=== PATIENT | female | born 1960 | race African-American/Black ===

== ENCOUNTER 2017-04-23 12:50 | Inpatient (IN) | payer OTHER ==
[2017-04-23] MEDS ORDERED: ACETAMINOPHEN 500 MG TABLET (FP) PO ONE (12:58)
--- NOTE | 2017-04-23 13:14 | PDOC ---
History of Present Illness - General History Source: Patient Exam Limitations: No Limitations - History of Present Illness Initial Comments: 04/23/17 13:28 The patient is a 56 year old female with a significant PMH of HTN, diabetes, and hyperlipidemia who presents to the emergency department with fever and fatigue beginning approximately this morning. The patient reports associated tingling, hot head, and diarrhea with her fever. The patient also reports slow urinary release from about 2:30AM this morning. The patient notes having a sore throat and productive cough last week with clear and yellow sputum. The patient denies chest pain, shortness of breath, headache and dizziness. Denies chills, nausea, vomit, and constipation. Denies dysuria, frequency, urgency and hematuria. Allergies: NKA Social history: Former smoker. No reported drug or alcohol use. PCP: Dr. Xiong <Best Guardado - Last Filed: 04/23/17 15:46> <Nadeem Palacios - Last Filed: 04/23/17 16:21> - General Chief Complaint: SIRS, Suspected/Possible Stated Complaint: HYPERTENSION Time Seen by Provider: 04/23/17 13:06 Past History <Best Guardado - Last Filed: 04/23/17 15:46> - Past Medical History Diabetes: Yes HTN: Yes Hypercholesterolemia: Yes - Psycho/Social/Smoking Cessation Hx Anxiety: No Suicidal Ideation: No Smoking History: Never smoked Have you smoked in the past 12 months: No Information on smoking cessation initiated: No Hx Alcohol Use: No Drug/Substance Use Hx: No Substance Use Type: None <Nadeem Palacios - Last Filed: 04/23/17 16:21> - Past Medical History Allergies/Adverse Reactions: Allergies Allergy/AdvReac Type Severity Reaction Status Date / Time No Known Allergies Allergy Verified 04/23/17 13:01 Home Medications: Ambulatory Orders Amlodipine Besylate [Norvasc -] 5 mg PO DAILY 04/23/17 Aspirin [ASA -] 81 mg PO DAILY 04/23/17 Insulin Glargine,Hum.rec.anlog [Lantus Solostar PEN (NF)] 50 units SQ BID Insulin Lispro [Humalog Kwikpen] 10 unit SQ TID 04/23/17 Losartan Potassium 100 mg PO DAILY 04/23/17 Metoprolol Succinate [Toprol Xl] 50 mg PO DAILY 04/23/17 Simvastatin 10 mg PO HS 04/23/17 Sitagliptin Phos/Metformin HCl [Janumet 50-1,000 mg Tablet] 1 each PO BID Review of Systems - Review of Systems Comments:: 04/23/17 13:28 GENERAL/CONSTITUTIONAL: (+) Fever. No chills. No weakness. HEAD, EYES, EARS, NOSE AND THROAT: (+) Sore throat (last week). No change in vision. No ear pain or discharge. CARDIOVASCULAR: No chest pain or shortness of breath. RESPIRATORY: No cough, wheezing, or hemoptysis. GASTROINTESTINAL: (+) Diarrhea. No nausea, vomiting, or constipation. GENITOURINARY: (+) Slow urinary release. No dysuria, frequency. MUSCULOSKELETAL: No joint or muscle swelling or pain. No neck or back pain. SKIN: No rash NEUROLOGIC: No headache, vertigo, loss of consciousness, or change in strength/ sensation. ENDOCRINE: No increased thirst. No abnormal weight change. HEMATOLOGIC/LYMPHATIC: No anemia, easy bleeding, or history of blood clots. ALLERGIC/IMMUNOLOGIC: No hives or skin allergy. <Best Guardado - Last Filed: 04/23/17 15:46> *Physical Exam - Vital Signs Last Vital Signs Temp Pulse Resp BP Pulse Ox 101.2 F H 124 H 20 179/99 97 04/23/17 13:01 04/23/17 13:01 04/23/17 13:01 04/23/17 13:01 04/23/17 13:01 - Physical Exam Comments: 04/23/17 13:29 GENERAL: Awake, alert, and fully oriented, in no acute distress HEAD: No signs of trauma EYES: PERRLA, EOMI, sclera anicteric, conjunctiva clear ENT: (+) Nasal congestion. Auricles normal inspection, hearing grossly normal, nares patent, oropharynx clear without exudates. Moist mucosa NECK: Normal ROM, supple, no lymphadenopathy, JVD, or masses LUNGS: Breath sounds equal, clear to auscultation bilaterally. No wheezes, and no crackles HEART: Regular rate and rhythm, normal S1 and S2, no murmurs, rubs or gallops ABDOMEN: Soft, nontender, normoactive bowel sounds. No guarding, no rebound. No masses EXTREMITIES: Normal range of motion, no edema. No clubbing or cyanosis. No cords, erythema, or tenderness NEUROLOGICAL: Cranial nerves II through XII grossly intact. Normal speech, normal gait SKIN: Warm, Dry, normal turgor, no rashes or lesions noted. <Best Guardado - Last Filed: 04/23/17 15:46> - Vital Signs Last Vital Signs Temp Pulse Resp BP Pulse Ox 101.2 F H 124 H 20 179/99 97 04/23/17 13:01 04/23/17 13:01 04/23/17 13:01 04/23/17 13:01 04/23/17 13:01 <Nadeem Palacios - Last Filed: 04/23/17 16:21> Heart Score/ECG Review #1 04/23/17 15:47 Vent. rate 118 bpm. NH Interval: 176 ms QRS Duration: 74 ms QT/QTc: 312/437 ms P-R-T axes: 54 9 65 Sinus tachycardia Possible left atrial enlargment. Borderline ECG <Best Guardado - Last Filed: 04/23/17 15:46> ED Treatment Course - LABORATORY CBC & Chemistry Diagram: 04/23/17 13:35 04/23/17 13:35 <Best Guardado - Last Filed: 04/23/17 15:46> - LABORATORY CBC & Chemistry Diagram: 04/23/17 13:35 04/23/17 13:35 <Nadeem Palacios - Last Filed: 04/23/17 16:21> *DC/Admit/Observation/Transfer - Attestations Scribe Attestion: 04/23/17 13:29 Documentation prepared by Best Guardado, acting as medical supervisor for Nadeem Palacios MD. <Best Guardado - Last Filed: 04/23/17 15:46> - Discharge Dispostion Admit: Yes - Attestations Physician Attestion: 04/23/17 13:07 I, Dr. Nadeem Palacios, attest that this document has been prepared under my direction and personally reviewed by me in its entirety. I further attest, that it accurately reflects all work, treatment, procedures and medical decision -making performed by me. <Nadeem Palacios - Last Filed: 04/23/17 16:21> Diagnosis at time of Disposition: Fever of unknown origin (FUO) Sepsis Qualifiers: Sepsis type: sepsis due to unspecified organism Qualified Code(s): A41.9 - Sepsis, unspecified organism - Discharge Dispostion Condition at time of disposition: Improved - Referrals Referrals: Chuck Xiong MD [Primary Care Provider] -
[2017-04-23] MEDS ORDERED: SODIUM CHLORIDE 0.9% 1000 ML INFUS.BAG IV STA (13:15)
[2017-04-23 14:02] LABS: VENOUS PH 7.41 (7.32-7.42)
[2017-04-23 14:03] LABS: VENOUS BLOOD GAS HCO3 26.2 meq/L (19-25)
[2017-04-23 14:03] LABS: ALBUMIN 3.6 g/dl (3.4-5.0); ANION GAP 11 (8-16); BILIRUBIN,TOTAL 0.8 mg/dL (0.2-1.0); CALCIUM 8.5 mg/dL (8.5-10.1); CO2 28 mmol/L (21-32); CREATININE 0.7 mg/dL (0.55-1.02); GLUCOSE,RANDOM 191 mg/dL (74-106); SGOT/AST 14 U/L (15-37); SGPT/ALT 37 U/L (12-78); TOT PROT 7.3 g/dl (6.4-8.2)
[2017-04-23 14:05] LABS: ALK PHOS 81 U/L (45-117); CPK 180 IU/L (26-192); TROPONIN I < 0.02 ng/ml (0.00-0.05)
[2017-04-23 14:08] LABS: INR 1.14 (0.82-1.09); PROTHROMBIN TIME (PATIENT) 12.6 SEC (9.98-11.88)
[2017-04-23 14:10] LABS: ACTIVATED PTT 32.6 SECONDS (26.9-34.4)
[2017-04-23 14:28] LABS: URINE APPEARANCE CLOUDY; URINE BILIRUBIN NEGATIVE (NEGATIVE); URINE BLOOD NEGATIVE (NEGATIVE); URINE COLOR YELLOW; URINE GLUCOSE (UA) 1+ (NEGATIVE); URINE KETONE NEGATIVE (NEGATIVE); URINE LEUK ESTERASE NEGATIVE (NEGATIVE); URINE NITRITE NEGATIVE (NEGATIVE); URINE PROTEIN 2+ (NEGATIVE); URINE UROBILINOGEN NEGATIVE mg/dL (0.2-1.0)
[2017-04-23 14:29] LABS: BASOPHIL 0.3 % (0-2.0); MCH 25.6 pg (25.7-33.7); MEAN CELL VOLUME 82.5 fl (80-96); MEAN PLT VOLUME 9.9 fl (7.5-11.1); NEUTROPHILS 83.4 % (42.8-82.8); PLATELET COUNT 393 K/MM3 (134-434); RDW 15.2 % (11.6-15.6)
[2017-04-23 14:31] LABS: URINE HYALINE CAST 1 /lpf; URINE MUCUS RARE; URINE RBC 1 /hpf (0-3); URINE WBC 1 /hpf (3-5)
[2017-04-23] MEDS ORDERED: PIPERACILLIN/TAZOB 3.375 GM/50 ML PRE-DOCKED IV ONE (15:57)
[2017-04-23] MEDS ORDERED: PIPERACILLIN/TAZOB 3.375 GM 50 ML IVPB ONE (15:59)
[2017-04-23] MEDS: SODIUM CHLORIDE 1,000 ML IV SCH (17:20)
[2017-04-23] MEDS: INSULIN (NOVOLOG) ASPART 100 UNITS/ML 10ML VIAL SQ SCH (18:41)
[2017-04-23] MEDS ORDERED: SODIUM CHLORIDE 1,000 ML IV STA (18:43)
--- NOTE | 2017-04-23 18:49 | EKG ---
Test Reason : Blood Pressure : / mmHG Vent. Rate : 118 BPM Atrial Rate : 118 BPM P-R Int : 176 ms QRS Dur : 074 ms QT Int : 312 ms P-R-T Axes : 054 009 065 degrees QTc Int : 437 ms SINUS TACHYCARDIA POSSIBLE LEFT ATRIAL ENLARGEMENT BORDERLINE ECG NO PREVIOUS ECGS AVAILABLE Confirmed by FAVIOLA MILLIGAN MD ([id number]) on 04/23/2017 6:49:17 PM Referred By: Confirmed By:FAVIOLA MILLIGAN MD
[2017-04-23] MEDS ORDERED: ACETAMINOPHEN 325 MG TABLET (FP) ONE (21:45)
[2017-04-23] MEDS: ACETAMINOPHEN 325 MG TABLET (FP) PO PRN (21:51)
[2017-04-23] MEDS ORDERED: PATIENT'S OWN MEDICATION (NON-FORMULARY) (Sitagliptin Phos/Metformin Hcl [Janumet 50-1,000 PO SCH (22:00)
[2017-04-23] MEDS ORDERED: PIPERACILLIN/TAZOBACTAM 3.375 GM VIAL IVPB ONE (22:46)
[2017-04-23] MEDS ORDERED: DEXTROSE 5%-WATER - 50 ML IVPB ONE (22:47)
[2017-04-23] MEDS: INSULIN DETEMIR 100 UNITS/ML MDV SQ SCH (23:23)
[2017-04-23] MEDS: PIPERACILLIN/TAZOB 3.375 GM 3.375 GM in DEXTROSE 5%-WATER - 50 ML IVPB SCH (23:23)
[2017-04-23] MEDS: HEPARIN NA (PORCINE) 5,000 UNITS/ML 1ML VIAL SQ SCH (23:23)
[2017-04-23] MEDS: ATORVASTATIN CA 10 MG TABLET (FP) PO SCH (23:23)
[2017-04-24] MEDS ORDERED: DEXTROSE 5%-WATER - 50 ML IVPB ONE ×2 (01:32→10:03)
[2017-04-24] MEDS ORDERED: PIPERACILLIN/TAZOBACTAM 3.375 GM VIAL IVPB ONE ×2 (01:32→10:03)
[2017-04-24 04:07] VITALS: BMI 41.1
[2017-04-24] MEDS: ACETAMINOPHEN 325 MG TABLET (FP) PO PRN (06:27)
[2017-04-24 08:17] LABS: BASOPHIL 0.3 % (0-2.0); EOSINOPHIL 0.7 % (0-4.5); MCH 25.3 pg (25.7-33.7); MCHC 30.8 g/dl (32.0-36.0); MEAN CELL VOLUME 82.3 fl (80-96); MEAN PLT VOLUME 9.8 fl (7.5-11.1); NEUTROPHILS 80.6 % (42.8-82.8); PLATELET COUNT 363 K/MM3 (134-434); RDW 15.3 % (11.6-15.6); WHITE BLOOD COUNT 16.5 K/mm3 (4.0-10.0)
[2017-04-24] MEDS: sitaGLIPtin PHOSPHATE 50 MG TABLET PO SCH ×2 (08:28→17:29)
[2017-04-24] MEDS: INSULIN (NOVOLOG) ASPART 100 UNITS/ML 10ML VIAL SQ SCH ×3 (08:29→17:29)
[2017-04-24] MEDS: metFORMIN HCL 500 MG TABLET (FP) PO SCH ×2 (08:29→17:29)
[2017-04-24 09:05] LABS: ALBUMIN 2.9 g/dl (3.4-5.0); ALK PHOS 74 U/L (45-117); ANION GAP 10 (8-16); BILIRUBIN,TOTAL 1.1 mg/dL (0.2-1.0); CALCIUM 8.1 mg/dL (8.5-10.1); CO2 27 mmol/L (21-32); CREATININE 0.6 mg/dL (0.55-1.02); GLUCOSE,RANDOM 144 mg/dL (74-106); SGOT/AST 19 U/L (15-37); SGPT/ALT 35 U/L (12-78); TOT PROT 6.5 g/dl (6.4-8.2)
[2017-04-24] MEDS ORDERED: PT OWN MED DRAWER 7, Y5N ONE (10:02)
[2017-04-24] MEDS: amLODIPine BESYLATE 5 MG TABLET (FP) PO SCH (10:14)
[2017-04-24] MEDS: LOSARTAN POTASSIUM 50 MG TABLET (FP) PO SCH (10:14)
[2017-04-24] MEDS: ASPIRIN 81 MG CHEWABLE TABLETS PO SCH (10:14)
[2017-04-24] MEDS: METOPROLOL SUCCINATE 50 MG TAB.SR.24H (FP) PO SCH (10:14)
[2017-04-24] MEDS: PIPERACILLIN/TAZOB 3.375 GM 3.375 GM in DEXTROSE 5%-WATER - 50 ML IVPB SCH (10:14)
[2017-04-24] MEDS: HEPARIN NA (PORCINE) 5,000 UNITS/ML 1ML VIAL SQ SCH ×2 (10:15→21:21)
[2017-04-24] MEDS: SODIUM CHLORIDE 1,000 ML IV SCH ×2 (10:16→17:29)
--- NOTE | 2017-04-24 10:43 | HP ---
Admitting History and Physical - Primary Care Physician PCP: Chuck Xiong - Admission Chief Complaint: chills lightheadedness History of Present Illness: The patient is a 56 year old female with a significant PMH of HTN, diabetes, and hyperlipidemia who presents to the emergency department with fever and fatigue beginning approximately this morning. The patient reports associated tingling, hot head, and diarrhea with her fever. The patient also reports slow urinary release from about 2:30AM this morning. The patient notes having a sore throat and productive cough last week with clear and yellow sputum. per patient she also complaining of chills and dizziness and feeling light headed so came to ER no vomiting no dysuria in ER:WBC 18 and lactic acid 3.2 and noted to have temp 101.2 started on zosyn History Source: Patient - Past Medical History Cardiovascular: Yes: HTN Endocrine: Yes: Diabetes Mellitus - Smoking History Smoking history: Never smoked Have you smoked in the past 12 months: No - Alcohol/Substance Use Hx Alcohol Use: No Home Medications - Allergies Allergies/Adverse Reactions: Allergies Allergy/AdvReac Type Severity Reaction Status Date / Time No Known Allergies Allergy Verified 04/23/17 13:01 - Home Medications Home Medications: Ambulatory Orders Amlodipine Besylate [Norvasc -] 5 mg PO DAILY 04/23/17 Aspirin [ASA -] 81 mg PO DAILY 04/23/17 Insulin Glargine,Hum.rec.anlog [Lantus Solostar PEN (NF)] 50 units SQ DAILY Insulin Lispro [Humalog Kwikpen] 10 unit SQ TID 04/23/17 Losartan Potassium 100 mg PO DAILY 04/23/17 Metoprolol Succinate [Toprol Xl] 50 mg PO DAILY 04/23/17 Simvastatin 10 mg PO HS 04/23/17 Sitagliptin Phos/Metformin HCl [Janumet 50-1,000 mg Tablet] 1 each PO BID Review of Systems - Review of Systems Constitutional: reports: Other (tired weak) Gastrointestinal: reports: Diarrhea Physical Examination Vital Signs: Vital Signs Temperature 99.9 F H 04/24/17 09:00 Pulse Rate 106 H 04/24/17 09:00 Respiratory Rate 18 04/24/17 09:00 Blood Pressure 139/76 04/24/17 09:00 O2 Sat by Pulse Oximetry (%) 94 L 04/24/17 04:02 Constitutional: Yes: Calm Neck: Yes: Trachea Midline Cardiovascular: Yes: Regular Rate and Rhythm, S1, S2 Respiratory: Yes: CTA Bilaterally Gastrointestinal: Yes: Normal Bowel Sounds, Soft Edema: No Neurological: Yes: Alert, Oriented Labs: CBC, BMP 04/24/17 05:40 04/24/17 05:40 Imaging - Results Chest X-ray: Report Reviewed Problem List - Problems (1) Fever of unknown origin (FUO) Assessment/Plan: lactic acid trending down cultures pending stool studies pending as well broad spectrum abx ivf Code(s): R50.9 - FEVER, UNSPECIFIED (2) Diabetes Assessment/Plan: januvia and metformin levemir bgm sliding scale hga1c lipid profile statin Code(s): E11.9 - TYPE 2 DIABETES MELLITUS WITHOUT COMPLICATIONS Qualifiers: Diabetes mellitus type: type 2 (3) HTN (hypertension) Assessment/Plan: losartan and norvasc metoprolol Code(s): I10 - ESSENTIAL (PRIMARY) HYPERTENSION
--- NOTE | 2017-04-24 11:16 | HP ---
Admitting History and Physical - Admission Chief Complaint: dizziness and fever - Past Medical History Cardiovascular: Yes: HTN Endocrine: Yes: Diabetes Mellitus - Smoking History Smoking history: Never smoked Have you smoked in the past 12 months: No - Alcohol/Substance Use Hx Alcohol Use: No Home Medications - Allergies Allergies/Adverse Reactions: Allergies Allergy/AdvReac Type Severity Reaction Status Date / Time No Known Allergies Allergy Verified 04/23/17 13:01 - Home Medications Home Medications: Ambulatory Orders Amlodipine Besylate [Norvasc -] 5 mg PO DAILY 04/23/17 Aspirin [ASA -] 81 mg PO DAILY 04/23/17 Insulin Glargine,Hum.rec.anlog [Lantus Solostar PEN (NF)] 50 units SQ DAILY Insulin Lispro [Humalog Kwikpen] 10 unit SQ TID 04/23/17 Losartan Potassium 100 mg PO DAILY 04/23/17 Metoprolol Succinate [Toprol Xl] 50 mg PO DAILY 04/23/17 Simvastatin 10 mg PO HS 04/23/17 Sitagliptin Phos/Metformin HCl [Janumet 50-1,000 mg Tablet] 1 each PO BID Physical Examination Vital Signs: Vital Signs Temperature 99.9 F H 04/24/17 09:00 Pulse Rate 106 H 04/24/17 09:00 Respiratory Rate 18 04/24/17 09:00 Blood Pressure 139/76 04/24/17 09:00 O2 Sat by Pulse Oximetry (%) 94 L 04/24/17 04:02 Labs: CBC, BMP 04/24/17 05:40 04/24/17 05:40
[2017-04-24] MEDS: PIPERACILLIN/TAZOB 3.375 GM/50 ML PRE-DOCKED IVPB SCH (11:25)
[2017-04-24] MEDS: INSULIN DETEMIR 100 UNITS/ML MDV SQ SCH ×2 (11:25→11:52)
--- NOTE | 2017-04-24 11:43 | CONSULT ---
Consult Consult Specialty:: Infectious Disease Reason for Consultation:: Fever and dizziness - History of Present Illness Chief Complaint: Fever and dizziness History of Present Illness: 56 year old female with a pmh of diabetes mellitus, hypertension, and hyperlipidemia presented to the hospital this morning for a 1 day hx of fever, fatigue, and dizziness. She states that when she was admitted to the hospital, she began to have lower abdominal pain and non-bloody diarrhea (7x since admission). Patient states that she currently has no abdominal pain. She states that last week she suffered a cold/flu-like illness from which she had completely recovered prior to current admission. Patient reports having a colonoscopy in where they found 2 polyps. She states she did receive antibiotics (a "Z-pack") previously from her PCP. Reports she is HIV negative. Patient lives with 2 children ages 25 and 18, denies recent travel or sick contacts. She states she is in no current distress. Denies chest pain, SOB , nausea, vomiting. Patient is a former smoker, denies drug/alcohol use. - Past Medical History Cardio/Vascular: Yes: HTN Endocrine: Yes: Diabetes Mellitus - Alcohol/Substance Use Hx Alcohol Use: No - Smoking History Smoking history: Never smoked Have you smoked in the past 12 months: No Home Medications - Allergies Allergies/Adverse Reactions: Allergies Allergy/AdvReac Type Severity Reaction Status Date / Time No Known Allergies Allergy Verified 04/23/17 13:01 - Home Medications Home Medications: Ambulatory Orders Amlodipine Besylate [Norvasc -] 5 mg PO DAILY 04/23/17 Aspirin [ASA -] 81 mg PO DAILY 04/23/17 Insulin Glargine,Hum.rec.anlog [Lantus Solostar PEN (NF)] 50 units SQ DAILY Insulin Lispro [Humalog Kwikpen] 10 unit SQ TID 04/23/17 Losartan Potassium 100 mg PO DAILY 04/23/17 Metoprolol Succinate [Toprol Xl] 50 mg PO DAILY 04/23/17 Simvastatin 10 mg PO HS 04/23/17 Sitagliptin Phos/Metformin HCl [Janumet 50-1,000 mg Tablet] 1 each PO BID Review of Systems - Review of Systems Constitutional: reports: Chills, Fever Eyes: reports: No Symptoms HENT: reports: No Symptoms Neck: reports: No Symptoms Cardiovascular: reports: No Symptoms. denies: Chest Pain, Palpitations, Shortness of Breath Respiratory: reports: No Symptoms. denies: Cough, Hemoptysis, Orthopnea, SOB, SOB on Exertion Gastrointestinal: reports: No Symptoms, Diarrhea. denies: Abdominal Pain, Melena, Nausea, Rectal Bleeding, Vomiting Genitourinary: reports: No Symptoms Musculoskeletal: reports: No Symptoms Integumentary: reports: No Symptoms Neurological: reports: No Symptoms Endocrine: reports: No Symptoms Hematology/Lymphatic: reports: No Symptoms Psychiatric: reports: No Symptoms Physical Exam Vital Signs: Vital Signs Temperature 99.9 F H 04/24/17 09:00 Pulse Rate 106 H 04/24/17 09:00 Respiratory Rate 18 04/24/17 09:00 Blood Pressure 139/76 04/24/17 09:00 O2 Sat by Pulse Oximetry (%) 94 L 04/24/17 04:02 Constitutional: Yes: Well Nourished, No Distress, Calm, Obese Eyes: Yes: WNL, Conjunctiva Clear, EOM Intact HENT: Yes: Atraumatic, Normocephalic Neck: Yes: Supple, Trachea Midline Cardiovascular: Yes: Regular Rate and Rhythm, S1, S2. No: Gallop, Murmur, Rub Respiratory: Yes: Regular, CTA Bilaterally, Accessory Muscle Use. No: Rales, Rhonchi, SOB, Wheezes Gastrointestinal: Yes: Abdomen, Obese, Hyperactive Bowel Sounds, Tenderness ( Mild tenderness elicited in the epigastric region) Musculoskeletal: Yes: WNL Extremities: Yes: WNL Edema: No Peripheral Pulses WNL: Yes Integumentary: Yes: WNL Neurological: Yes: Alert, Oriented, Cran Nerves II-XII Intact ...Motor Strength: WNL Psychiatric: Yes: WNL Labs: CBC, BMP 04/24/17 05:40 04/24/17 05:40 Imaging - Results Chest X-ray: Report Reviewed (No evidence of pulmonary disease) Problem List - Problems (1) Diabetes Code(s): E11.9 - TYPE 2 DIABETES MELLITUS WITHOUT COMPLICATIONS Qualifiers: Diabetes mellitus type: type 2 (2) Fever of unknown origin (FUO) Code(s): R50.9 - FEVER, UNSPECIFIED (3) HTN (hypertension) Code(s): I10 - ESSENTIAL (PRIMARY) HYPERTENSION Assessment/Plan 56 year old female pmh DM, HTN, HLD, seen by ID for evaluation of fever, diarrhea, leukocytosis possible viral etiology vs cdiff vs diverticulitis -WBC trending down, 16.5 today -repeat CBC in AM -D/C zosyn -begin levoquin 500 daily and flagyl IV Q8h -f/u cdiff toxin -f/u cultures
[2017-04-24] MEDS: METRONIDAZOLE 500 MG PREMIXED 100 ML IVPB SCH ×2 (11:56→17:29)
--- NOTE | 2017-04-24 12:01 | PN ---
Teaching Attending Note Name of Resident: Brandt Freed ATTENDING PHYSICIAN STATEMENT I saw and evaluated the patient. I reviewed the resident's note and discussed the case with the resident. I agree with the resident's findings and plan as documented. SUBJECTIVE: fevers and chills diarrhea nonbloody no vomiting no sick contacts recent zpak? no travel no abdominal pain colonoscopy this spring, 2 polyps, no diverticulosis per patient no history of abdominal surgery no pets OBJECTIVE: Vital Signs Period Temp Pulse Resp BP Sys/Allen Pulse Ox Last 24 Hr 99.5 F-102.4 F 106-124 18-20 139-179/72-99 93-97 cor-rrr lungs clear abd soft,nt, mild midepigastric discomfort to palpation, hyperactive BS ext no edema CBC, BMP 04/24/17 05:40 04/24/17 05:40 ASSESSMENT AND PLAN: suspect gastroenteritis cannot r/o cdiff blood cultures, stool cultures, stool cdiff levaquin/flagyl
[2017-04-24] MEDS: LEVOFLOXACIN 500 MG IVPB 100 ML IVPB SCH (12:58)
[2017-04-24] MEDS: ATORVASTATIN CA 10 MG TABLET (FP) PO SCH (21:21)
[2017-04-25] MEDS: METRONIDAZOLE 500 MG PREMIXED 100 ML IVPB SCH ×3 (01:28→17:45)
[2017-04-25] MEDS: SODIUM CHLORIDE 1,000 ML IV SCH ×2 (01:28→17:14)
[2017-04-25] MEDS: PIPERACILLIN/TAZOB 3.375 GM/50 ML PRE-DOCKED IVPB SCH (01:39)
--- NOTE | 2017-04-25 08:13 | PN ---
Progress Note, Physician Chief Complaint: ID Still feels about the same Some abd discomfort Levofloxacin metronidazole - Current Medication List Current Medications: Active Medications Acetaminophen (Tylenol -) 650 mg PO QID PRN PRN Reason: FEVER Last Admin: 04/24/17 06:27 Dose: 650 mg Amlodipine Besylate (Norvasc -) 5 mg PO DAILY [facility] Last Admin: 04/24/17 10:14 Dose: 5 mg Aspirin (Asa -) 81 mg PO DAILY [facility] Last Admin: 04/24/17 10:14 Dose: 81 mg Atorvastatin Calcium (Lipitor -) 10 mg PO HS [facility] Last Admin: 04/24/17 21:21 Dose: 10 mg Heparin Sodium (Porcine) (Heparin -) 5,000 unit SQ BID [facility] Last Admin: 04/24/17 21:21 Dose: 5,000 unit Sodium Chloride (Normal Saline -) 1,000 mls @ 75 mls/hr IV ASDIR [facility] Last Admin: 04/25/17 01:28 Dose: 75 mls/hr Metronidazole (Flagyl 500mg Premixed Ivpb -) 100 mls @ 100 mls/hr IVPB Q8H-IV [facility] Last Admin: 04/25/17 01:28 Dose: 100 mls/hr Levofloxacin (Levaquin 500 Mg Premixed Ivpb -) 100 mls @ 100 mls/hr IVPB DAILY [facility] Last Admin: 04/24/17 12:58 Dose: 100 mls/hr Insulin Aspart (Novolog Vial) 10 units SQ TIDCM [facility] Last Admin: 04/24/17 17:29 Dose: 10 units Insulin Detemir (Levemir Vial) 50 units SQ AM [facility] Last Admin: 04/24/17 11:52 Dose: 50 units Losartan Potassium (Cozaar -) 100 mg PO DAILY [facility] Last Admin: 04/24/17 10:14 Dose: 100 mg Metformin HCl (Glucophage -) 1,000 mg PO BIDAC [facility] Last Admin: 04/24/17 17:29 Dose: 1,000 mg Metoprolol Succinate (Toprol Xl -) 50 mg PO DAILY [facility] Last Admin: 04/24/17 10:14 Dose: 50 mg Sitagliptin Phosphate (Januvia -) 50 mg PO BIDAC [facility] Last Admin: 04/24/17 17:29 Dose: 50 mg - Objective Vital Signs: Vital Signs Temperature 99.8 F H 04/25/17 06:00 Pulse Rate 100 H 04/25/17 06:00 Respiratory Rate 20 04/25/17 06:00 Blood Pressure 160/90 04/25/17 06:00 O2 Sat by Pulse Oximetry (%) 96 04/24/17 21:00 Constitutional: Yes: Well Nourished, No Distress Neck: Yes: WNL, Supple Cardiovascular: Yes: S1, S2 Respiratory: Yes: WNL, Regular, CTA Bilaterally Gastrointestinal: Yes: WNL, Normal Bowel Sounds, Soft, Tenderness, Epigastrium Labs: CBC, BMP 04/24/17 05:40 04/24/17 05:40 INR, PTT INR 1.14 (0.82-1.09) 04/23/17 13:35 Assessment/Plan Microbiology 04/24/17 07:30 Stool Clostridium difficile Antigen (JERMAINE) - Final 04/24/17 07:30 Stool Clostridium difficile Toxin Assay - Final 04/23/17 13:15 Blood - Peripheral Venous Blood Culture - Preliminary NO GROWTH OBTAINED AFTER 24 HOURS, INCUBATION TO CONTINUE FOR 4 DAYS. 04/23/17 13:15 Blood - Peripheral Venous Blood Culture - Preliminary NO GROWTH OBTAINED AFTER 24 HOURS, INCUBATION TO CONTINUE FOR 4 DAYS. Laboratory Tests 04/23/17 04/23/17 04/24/17 13:35 13:35 05:40 WBC 18.0 H 16.5 H Hct 36.7 Plt Count 363 INR 1.14 BUN Creatinine Creat Clearance w eGFR Total Bilirubin AST ALT Alkaline Phosphatase 04/24/17 05:40 WBC Hct Plt Count INR BUN 4 L D Creatinine 0.6 Creat Clearance w eGFR > 60 Total Bilirubin 1.1 H D AST 19 D ALT 35 Alkaline Phosphatase 74 Assessment Intrabdominal discomfort diarrhea ? gastroenteritis Plan Continue antibiotics CT imaging of abd Stool cultures pending RAYMUNDO Romero MD
[2017-04-25 08:37] LABS: BASOPHIL 0.6 % (0-2.0); EOSINOPHIL 3.8 % (0-4.5); MCH 25.5 pg (25.7-33.7); MEAN CELL VOLUME 82.3 fl (80-96); MEAN PLT VOLUME 9.4 fl (7.5-11.1); NEUTROPHILS 67.7 % (42.8-82.8); PLATELET COUNT 368 K/MM3 (134-434); RDW 15.1 % (11.6-15.6); WHITE BLOOD COUNT 13.8 K/mm3 (4.0-10.0)
[2017-04-25 09:04] LABS: CHOLESTEROL 189 mg/dL (50-200); LDL CHOLESTEROL (ONLY SJRH) 117 mg/dL (5-100)
[2017-04-25 09:05] LABS: ALBUMIN 2.8 g/dl (3.4-5.0); ANION GAP 8 (8-16); CALCIUM 8.4 mg/dL (8.5-10.1); CO2 29 mmol/L (21-32); CREATININE 0.5 mg/dL (0.55-1.02); GLUCOSE,RANDOM 114 mg/dL (74-106); SGOT/AST 16 U/L (15-37); SGPT/ALT 35 U/L (12-78)
[2017-04-25] MEDS: INSULIN (NOVOLOG) ASPART 100 UNITS/ML 10ML VIAL SQ SCH ×3 (09:06→17:09)
[2017-04-25] MEDS: INSULIN DETEMIR 100 UNITS/ML MDV SQ SCH (09:06)
[2017-04-25] MEDS: sitaGLIPtin PHOSPHATE 50 MG TABLET PO SCH ×2 (09:06→17:09)
[2017-04-25] MEDS: metFORMIN HCL 500 MG TABLET (FP) PO SCH ×2 (09:06→17:09)
[2017-04-25 09:07] LABS: ALK PHOS 72 U/L (45-117); BILIRUBIN,TOTAL 0.8 mg/dL (0.2-1.0); TOT PROT 6.6 g/dl (6.4-8.2)
[2017-04-25] MEDS: LOSARTAN POTASSIUM 50 MG TABLET (FP) PO SCH (10:49)
[2017-04-25] MEDS: ASPIRIN 81 MG CHEWABLE TABLETS PO SCH (10:49)
[2017-04-25] MEDS: HEPARIN NA (PORCINE) 5,000 UNITS/ML 1ML VIAL SQ SCH ×2 (10:50→21:31)
[2017-04-25] MEDS: amLODIPine BESYLATE 5 MG TABLET (FP) PO SCH (10:50)
[2017-04-25] MEDS: METOPROLOL SUCCINATE 50 MG TAB.SR.24H (FP) PO SCH (10:50)
[2017-04-25] MEDS: LEVOFLOXACIN 500 MG IVPB 100 ML IVPB SCH ×2 (12:15→13:20)
[2017-04-25] MEDS ORDERED: INSULIN (NOVOLOG) ASPART 100 UNITS/ML 10ML VIAL ONE ×4 (13:06→18:42)
--- NOTE | 2017-04-25 17:07 | PN ---
Progress Note, Physician Chief Complaint: Abdominal pain, diarrhea, fever History of Present Illness: -seen by ID -WBC trending down, responding well to IV abx -low grade fever past 24 hours -cdiff negative - Current Medication List Current Medications: Active Medications Acetaminophen (Tylenol -) 650 mg PO QID PRN PRN Reason: FEVER Last Admin: 04/24/17 06:27 Dose: 650 mg Amlodipine Besylate (Norvasc -) 5 mg PO DAILY [facility] Last Admin: 04/25/17 10:50 Dose: 5 mg Aspirin (Asa -) 81 mg PO DAILY [facility] Last Admin: 04/25/17 10:49 Dose: 81 mg Atorvastatin Calcium (Lipitor -) 10 mg PO HS [facility] Last Admin: 04/24/17 21:21 Dose: 10 mg Heparin Sodium (Porcine) (Heparin -) 5,000 unit SQ BID [facility] Last Admin: 04/25/17 10:50 Dose: 5,000 unit Sodium Chloride (Normal Saline -) 1,000 mls @ 75 mls/hr IV ASDIR [facility] Last Admin: 04/25/17 01:28 Dose: 75 mls/hr Metronidazole (Flagyl 500mg Premixed Ivpb -) 100 mls @ 100 mls/hr IVPB Q8H-IV [facility] Last Admin: 04/25/17 10:52 Dose: 100 mls/hr Levofloxacin (Levaquin 500 Mg Premixed Ivpb -) 100 mls @ 100 mls/hr IVPB DAILY [facility] Last Admin: 04/25/17 13:20 Dose: 100 mls/hr Insulin Aspart (Novolog Vial) 10 units SQ TIDCM [facility] Last Admin: 04/25/17 13:13 Dose: 10 units Insulin Detemir (Levemir Vial) 50 units SQ AM [facility] Last Admin: 04/25/17 09:06 Dose: Not Given Losartan Potassium (Cozaar -) 100 mg PO DAILY [facility] Last Admin: 04/25/17 10:49 Dose: 100 mg Metformin HCl (Glucophage -) 1,000 mg PO BIDAC [facility] Last Admin: 04/25/17 09:06 Dose: Not Given Metoprolol Succinate (Toprol Xl -) 50 mg PO DAILY [facility] Last Admin: 04/25/17 10:50 Dose: 50 mg Sitagliptin Phosphate (Januvia -) 50 mg PO BIDAC [facility] Last Admin: 04/25/17 09:06 Dose: Not Given - Objective Vital Signs: Vital Signs Temperature 98.6 F 04/25/17 14:36 Pulse Rate 72 04/25/17 14:36 Respiratory Rate 20 04/25/17 14:36 Blood Pressure 133/82 04/25/17 14:36 O2 Sat by Pulse Oximetry (%) 95 04/25/17 11:00 Constitutional: Yes: Well Nourished, No Distress, Calm Cardiovascular: Yes: Regular Rate and Rhythm Respiratory: Yes: Regular Gastrointestinal: Yes: Hyperactive Bowel Sounds Edema: No Labs: CBC, BMP 04/25/17 08:05 04/25/17 08:05 INR, PTT INR 1.14 (0.82-1.09) 04/23/17 13:35 Problem List - Problems (1) Diabetes Assessment/Plan: -uncontrolled with HgA1c at 10.7 -increase januvia to 100 BID for better glycemic control, goal random blood glucose below 160 -on SQ insulin -seen by endocrinology Code(s): E11.9 - TYPE 2 DIABETES MELLITUS WITHOUT COMPLICATIONS Qualifiers: Diabetes mellitus type: type 2 (2) Fever of unknown origin (FUO) Code(s): R50.9 - FEVER, UNSPECIFIED (3) HTN (hypertension) Assessment/Plan: -mostly under control -ARB, CCB and BB -cardiology consult Code(s): I10 - ESSENTIAL (PRIMARY) HYPERTENSION (4) Sepsis Assessment/Plan: -lactic acid normalized -low grade fever in past 24 hours. Code(s): A41.9 - SEPSIS, UNSPECIFIED ORGANISM Qualifiers: Sepsis type: sepsis due to unspecified organism Qualified Code(s): A41.9 - Sepsis, unspecified organism (5) Diarrhea Assessment/Plan: -cdiff negative -to be seen by GI -CT abdomen suggest possible colitis - on IV levaquin and flagyl- responding well. Code(s): R19.7 - DIARRHEA, UNSPECIFIED Assessment/Plan see problem list
[2017-04-25] MEDS: ATORVASTATIN CA 10 MG TABLET (FP) PO SCH (21:31)
--- NOTE | 2017-04-25 22:17 | CONSULT ---
Consult Consult Specialty:: endocrine Referred by:: dr.saba story Reason for Consultation:: diabetes mellitus - History of Present Illness Chief Complaint: diarhea weakness,nausea History of Present Illness: 56 year old female with a significant PMH of HTN, diabetes, and hyperlipidemia who presents to the emergency department with fever and fatigue beginning approximately this morning. The patient reports associated tingling, hot head, and diarrhea with her fever.recently developed urti for which she complained sore throat cough congestion,she was rx zithromax and felt infection worsened and diarhea started was unable to keep food or liquid down,she was advised to present to ed - History Source History Provided By: Patient - Past Medical History Cardio/Vascular: Yes: HTN Endocrine: Yes: Diabetes Mellitus - Alcohol/Substance Use Hx Alcohol Use: No - Smoking History Smoking history: Never smoked Have you smoked in the past 12 months: No Home Medications - Allergies Allergies/Adverse Reactions: Allergies Allergy/AdvReac Type Severity Reaction Status Date / Time No Known Allergies Allergy Verified 04/23/17 13:01 - Home Medications Home Medications: Ambulatory Orders Amlodipine Besylate [Norvasc -] 5 mg PO DAILY 04/23/17 Aspirin [ASA -] 81 mg PO DAILY 04/23/17 Insulin Glargine,Hum.rec.anlog [Lantus Solostar PEN (NF)] 50 units SQ DAILY Insulin Lispro [Humalog Kwikpen] 10 unit SQ TID 04/23/17 Losartan Potassium 100 mg PO DAILY 04/23/17 Metoprolol Succinate [Toprol Xl] 50 mg PO DAILY 04/23/17 Simvastatin 10 mg PO HS 04/23/17 Sitagliptin Phos/Metformin HCl [Janumet 50-1,000 mg Tablet] 1 each PO BID Review of Systems - Review of Systems Constitutional: reports: Weakness Eyes: reports: No Symptoms HENT: reports: No Symptoms Neck: reports: No Symptoms Cardiovascular: reports: No Symptoms Respiratory: reports: SOB on Exertion Gastrointestinal: reports: Constipation Genitourinary: reports: No Symptoms Breasts: reports: No Symptoms Reported Musculoskeletal: reports: Muscle Pain, Muscle Cramps, Muscle Weakness Integumentary: reports: No Symptoms Neurological: reports: No Symptoms Endocrine: reports: Increased Hunger Hematology/Lymphatic: reports: No Symptoms Psychiatric: reports: No Symptoms Physical Exam Vital Signs: Vital Signs Temperature 98.6 F 04/25/17 14:36 Pulse Rate 72 04/25/17 14:36 Respiratory Rate 20 04/25/17 14:36 Blood Pressure 133/82 04/25/17 14:36 O2 Sat by Pulse Oximetry (%) 95 04/25/17 11:00 Constitutional: Yes: Anxious Eyes: Yes: EOM Intact HENT: Yes: Normocephalic Neck: Yes: WNL Cardiovascular: Yes: Regular Rate and Rhythm Respiratory: Yes: CTA Bilaterally Gastrointestinal: Yes: Abdomen, Obese, Hyperactive Bowel Sounds ...Rectal Exam: Yes: Deferred Renal/: Yes: WNL Breast(s): Yes: WNL Musculoskeletal: Yes: WNL Extremities: Yes: WNL Edema: No Integumentary: Yes: WNL Neurological: Yes: Alert, Oriented Labs: CBC, BMP 04/25/17 08:05 04/25/17 08:05 Problem List - Problems (1) Diabetes Code(s): E11.9 - TYPE 2 DIABETES MELLITUS WITHOUT COMPLICATIONS Qualifiers: Diabetes mellitus type: type 2 (2) Diarrhea Code(s): R19.7 - DIARRHEA, UNSPECIFIED (3) Fever of unknown origin (FUO) Code(s): R50.9 - FEVER, UNSPECIFIED (4) HTN (hypertension) Code(s): I10 - ESSENTIAL (PRIMARY) HYPERTENSION (5) Sepsis Code(s): A41.9 - SEPSIS, UNSPECIFIED ORGANISM Qualifiers: Sepsis type: sepsis due to unspecified organism Qualified Code(s): A41.9 - Sepsis, unspecified organism Assessment/Plan Current Active Problems Diabetes (Acute) Diarrhea (Acute) Fever of unknown origin (FUO) (Acute) HTN (hypertension) (Acute) Sepsis (Acute) dm gastroparesis dehydration hypovolemia Abnormal Lab Results 04/25/17 04/25/17 04/25/17 08:05 08:05 08:05 WBC 13.8 H MCH 25.5 L MCHC 31.0 L Potassium 3.4 L BUN 5 L D Creatinine 0.5 L Random Glucose 114 H D Hemoglobin A1c % 10.7 H Calcium 8.4 L C-Reactive Protein Albumin 2.8 L Total LDL Cholesterol HDL Cholesterol 04/25/17 04/25/17 08:05 08:27 WBC MCH MCHC Potassium BUN Creatinine Random Glucose Hemoglobin A1c % Calcium C-Reactive Protein 12.4 H Albumin Total LDL Cholesterol 117 H HDL Cholesterol 39 L Laboratory Results - last 24 hr 04/25/17 04/25/17 04/25/17 05:47 08:05 08:05 WBC 13.8 H RBC 4.46 Hgb 11.4 Hct 36.7 MCV 82.3 MCH 25.5 L MCHC 31.0 L RDW 15.1 Plt Count 368 MPV 9.4 Neutrophils % 67.7 Lymphocytes % 20.7 D Monocytes % 7.2 Eosinophils % 3.8 D Basophils % 0.6 Sodium 141 Potassium 3.4 L Chloride 104 Carbon Dioxide 29 Anion Gap 8 BUN 5 L D Creatinine 0.5 L Creat Clearance w eGFR > 60 POC Glucometer 110 Random Glucose 114 H D Hemoglobin A1c % Calcium 8.4 L Total Bilirubin 0.8 D AST 16 ALT 35 Alkaline Phosphatase 72 C-Reactive Protein Total Protein 6.6 Albumin 2.8 L Triglycerides Cholesterol Total LDL Cholesterol HDL Cholesterol 04/25/17 04/25/17 04/25/17 08:05 08:05 08:27 WBC RBC Hgb Hct MCV MCH MCHC RDW Plt Count MPV Neutrophils % Lymphocytes % Monocytes % Eosinophils % Basophils % Sodium Potassium Chloride Carbon Dioxide Anion Gap BUN Creatinine Creat Clearance w eGFR POC Glucometer Random Glucose Hemoglobin A1c % 10.7 H Calcium Total Bilirubin AST ALT Alkaline Phosphatase C-Reactive Protein 12.4 H Total Protein Albumin Triglycerides 150 Cholesterol 189 Total LDL Cholesterol 117 H HDL Cholesterol 39 L 04/25/17 04/25/17 13:04 17:08 WBC RBC Hgb Hct MCV MCH MCHC RDW Plt Count MPV Neutrophils % Lymphocytes % Monocytes % Eosinophils % Basophils % Sodium Potassium Chloride Carbon Dioxide Anion Gap BUN Creatinine Creat Clearance w eGFR POC Glucometer 119 230 Random Glucose Hemoglobin A1c % Calcium Total Bilirubin AST ALT Alkaline Phosphatase C-Reactive Protein Total Protein Albumin Triglycerides Cholesterol Total LDL Cholesterol HDL Cholesterol plan: bgm qid novolog coverage scale levemir 50 u am janumet 50mg daily dc metformi
[2017-04-26] MEDS: METRONIDAZOLE 500 MG PREMIXED 100 ML IVPB SCH ×2 (02:33→09:32)
[2017-04-26] MEDS: sitaGLIPtin PHOSPHATE 50 MG TABLET PO SCH ×2 (06:56→17:48)
[2017-04-26] MEDS: INSULIN DETEMIR 100 UNITS/ML MDV SQ SCH (06:56)
[2017-04-26] MEDS ORDERED: PT OWN MED DRAWER 7, Y5N ONE (07:12)
[2017-04-26] MEDS ORDERED: INSULIN (NOVOLOG) ASPART 100 UNITS/ML 10ML VIAL ONE ×4 (08:15→18:13)
[2017-04-26] MEDS: INSULIN (NOVOLOG) ASPART 100 UNITS/ML 10ML VIAL SQ SCH ×3 (08:32→17:51)
--- NOTE | 2017-04-26 09:26 | PN ---
Teaching Attending Note Name of Resident: Brandt Freed ATTENDING PHYSICIAN STATEMENT I saw and evaluated the patient. I reviewed the resident's note and discussed the case with the resident. I agree with the resident's findings and plan as documented. SUBJECTIVE:Continues to improve Say her head feels "clogged" Some diarrhea Some abd discomfort OBJECTIVE: Selected Entries 04/25/17 10:40 Temperature 98.5 F Pulse Rate 91 H Respiratory 24 Rate Blood Pressure 162/93 Abd Soft Epigastric tenderness mild no rebound ASSESSMENT AND PLAN: Laboratory Tests 04/23/17 04/25/17 04/25/17 13:35 08:05 08:05 WBC 18.0 H 13.8 H Hgb 11.4 Hct 36.7 Plt Count 368 BUN 5 L D Creatinine 0.5 L Creat Clearance w eGFR > 60 C-Reactive Protein 04/25/17 08:27 WBC Hgb Hct Plt Count BUN Creatinine Creat Clearance w eGFR C-Reactive Protein 12.4 H Assessment Infectious Colitis in this diabetic female bacteria negative Not really sure what we are treating with antibiotics but she apppears to be improving Plan GI evaluation prior to discharge Stop antibiotics Rota virus sent ordered Perhaps discharge by tomorrow am Nick Romero MD
[2017-04-26] MEDS: LOSARTAN POTASSIUM 50 MG TABLET (FP) PO SCH (09:32)
[2017-04-26] MEDS: amLODIPine BESYLATE 5 MG TABLET (FP) PO SCH (09:32)
[2017-04-26] MEDS: HEPARIN NA (PORCINE) 5,000 UNITS/ML 1ML VIAL SQ SCH ×2 (09:33→22:32)
[2017-04-26] MEDS: ASPIRIN 81 MG CHEWABLE TABLETS PO SCH (09:33)
[2017-04-26] MEDS: METOPROLOL SUCCINATE 50 MG TAB.SR.24H (FP) PO SCH (09:33)
--- NOTE | 2017-04-26 10:22 | PN ---
Progress Note, Physician Chief Complaint: Abdominal pain, diarrhea, fever History of Present Illness: -seen by ID -repeat labs -no fever -cdiff negative -could be of viral origin -to be seen by GI and cardiology Just to make it clear, Patient was given Azithromycin outpatient for URI but never took it because as per patient she previously did not like the side effects, hence did not tolerate it. - Current Medication List Current Medications: Active Medications Acetaminophen (Tylenol -) 650 mg PO QID PRN PRN Reason: FEVER Last Admin: 04/24/17 06:27 Dose: 650 mg Amlodipine Besylate (Norvasc -) 5 mg PO DAILY [facility] Last Admin: 04/26/17 09:32 Dose: 5 mg Aspirin (Asa -) 81 mg PO DAILY [facility] Last Admin: 04/26/17 09:33 Dose: 81 mg Atorvastatin Calcium (Lipitor -) 10 mg PO HS [facility] Last Admin: 04/25/17 21:31 Dose: 10 mg Heparin Sodium (Porcine) (Heparin -) 5,000 unit SQ BID [facility] Last Admin: 04/26/17 09:33 Dose: 5,000 unit Sodium Chloride (Normal Saline -) 1,000 mls @ 75 mls/hr IV ASDIR [facility] Last Admin: 04/25/17 17:14 Dose: Not Given Insulin Aspart (Novolog Vial) 10 units SQ TIDCM [facility] Last Admin: 04/26/17 08:32 Dose: 10 units Insulin Detemir (Levemir Vial) 50 units SQ AM [facility] Last Admin: 04/26/17 06:56 Dose: 50 units Losartan Potassium (Cozaar -) 100 mg PO DAILY [facility] Last Admin: 04/26/17 09:32 Dose: 100 mg Metoprolol Succinate (Toprol Xl -) 50 mg PO DAILY [facility] Last Admin: 04/26/17 09:33 Dose: 50 mg Sitagliptin Phosphate (Januvia -) 50 mg PO BIDAC [facility] Last Admin: 04/26/17 06:56 Dose: 50 mg - Objective Vital Signs: Vital Signs Temperature 98.5 F 04/26/17 09:31 Pulse Rate 20 L 04/26/17 09:31 Respiratory Rate 100 H 04/26/17 09:31 Blood Pressure 140/63 04/26/17 09:31 O2 Sat by Pulse Oximetry (%) 96 04/25/17 21:00 Constitutional: Yes: Well Nourished, No Distress, Calm Cardiovascular: Yes: Regular Rate and Rhythm Respiratory: Yes: Regular Gastrointestinal: Yes: Hyperactive Bowel Sounds Genitourinary: Yes: WNL Musculoskeletal: Yes: WNL Extremities: Yes: WNL Edema: No Peripheral Pulses WNL: Yes Neurological: Yes: Alert, Oriented Psychiatric: Yes: Alert, Oriented Labs: CBC, BMP 04/25/17 08:05 04/25/17 08:05 INR, PTT INR 1.14 (0.82-1.09) 04/23/17 13:35 Problem List - Problems (1) Diabetes Assessment/Plan: -uncontrolled with HgA1c at 10.7 -will keep januvia at 50 mg BID as per endocrinology, goal fasting blood glucose below 160 -on SQ Novolog TID -levemir 50u daily -seen by endocrinology Code(s): E11.9 - TYPE 2 DIABETES MELLITUS WITHOUT COMPLICATIONS Qualifiers: Diabetes mellitus type: type 2 (2) Fever of unknown origin (FUO) Code(s): R50.9 - FEVER, UNSPECIFIED (3) HTN (hypertension) Assessment/Plan: -mostly under control -ARB, CCB and BB -cardiology consult Code(s): I10 - ESSENTIAL (PRIMARY) HYPERTENSION (4) Sepsis Assessment/Plan: -lactic acid normalized -afebrile Code(s): A41.9 - SEPSIS, UNSPECIFIED ORGANISM Qualifiers: Sepsis type: sepsis due to unspecified organism Qualified Code(s): A41.9 - Sepsis, unspecified organism (5) Diarrhea Assessment/Plan: -cdiff negative -to be seen by GI -CT abdomen suggest possible colitis -abx discontinued, monitor off abx for another day. Code(s): R19.7 - DIARRHEA, UNSPECIFIED Assessment/Plan see problem list
--- NOTE | 2017-04-26 13:45 | PN ---
Progress Note, Physician History of Present Illness: 56 year old female with a pmh of diabetes mellitus, hypertension, and hyperlipidemia presented to the hospital this morning for a 1 day hx of fever, fatigue, and dizziness. She states that when she was admitted to the hospital, she began to have lower abdominal pain and non-bloody diarrhea (7x since admission). Patient states that she currently has no abdominal pain. She states that last week she suffered a cold/flu-like illness from which she had completely recovered prior to current admission. Patient reports having a colonoscopy in where they found 2 polyps. She states she did receive antibiotics (a "Z-pack") previously from her PCP. Reports she is HIV negative. Patient lives with 2 children ages 25 and 18, denies recent travel or sick contacts. Patient is a former smoker, denies drug/alcohol use. She states she is in no current distress. Denies chest pain, SOB, nausea, vomiting. Had 4x non-bloody diarrhea today, which is improved since yesterday. states she has mild epigastric tenderness. - Current Medication List Current Medications: Active Medications Acetaminophen (Tylenol -) 650 mg PO QID PRN PRN Reason: FEVER Last Admin: 04/24/17 06:27 Dose: 650 mg Amlodipine Besylate (Norvasc -) 5 mg PO DAILY [facility] Last Admin: 04/26/17 09:32 Dose: 5 mg Aspirin (Asa -) 81 mg PO DAILY [facility] Last Admin: 04/26/17 09:33 Dose: 81 mg Atorvastatin Calcium (Lipitor -) 10 mg PO HS [facility] Last Admin: 04/25/17 21:31 Dose: 10 mg Heparin Sodium (Porcine) (Heparin -) 5,000 unit SQ BID [facility] Last Admin: 04/26/17 09:33 Dose: 5,000 unit Sodium Chloride (Normal Saline -) 1,000 mls @ 75 mls/hr IV ASDIR [facility] Last Admin: 04/25/17 17:14 Dose: Not Given Insulin Aspart (Novolog Vial) 10 units SQ TIDCM [facility] Last Admin: 04/26/17 12:15 Dose: 10 units Insulin Detemir (Levemir Vial) 50 units SQ AM [facility] Last Admin: 04/26/17 06:56 Dose: 50 units Losartan Potassium (Cozaar -) 100 mg PO DAILY [facility] Last Admin: 04/26/17 09:32 Dose: 100 mg Metoprolol Succinate (Toprol Xl -) 50 mg PO DAILY [facility] Last Admin: 04/26/17 09:33 Dose: 50 mg Sitagliptin Phosphate (Januvia -) 50 mg PO BIDAC [facility] Last Admin: 04/26/17 06:56 Dose: 50 mg - Objective Vital Signs: Vital Signs Temperature 98.5 F 04/26/17 09:31 Pulse Rate 20 L 04/26/17 09:31 Respiratory Rate 100 H 04/26/17 09:31 Blood Pressure 140/63 04/26/17 09:31 O2 Sat by Pulse Oximetry (%) 96 04/25/17 21:00 Constitutional: Yes: Well Nourished, No Distress, Calm Eyes: Yes: Conjunctiva Clear, EOM Intact HENT: Yes: Atraumatic, Normocephalic Neck: Yes: Supple, Trachea Midline Cardiovascular: Yes: Regular Rate and Rhythm, S1, S2. No: Gallop, Murmur, Rub Respiratory: Yes: Regular, CTA Bilaterally Gastrointestinal: Yes: Normal Bowel Sounds, Soft, Abdomen, Obese, Hyperactive Bowel Sounds, Tenderness (Mid epigastrum) Breast(s): Yes: WNL Musculoskeletal: Yes: WNL Extremities: Yes: WNL Edema: No Peripheral Pulses WNL: Yes Integumentary: Yes: WNL Neurological: Yes: Alert, Oriented, Cran Nerves II-XII Intact ...Motor Strength: WNL Psychiatric: Yes: WNL Labs: CBC, BMP 04/25/17 08:05 04/25/17 08:05 INR, PTT INR 1.14 (0.82-1.09) 04/23/17 13:35 - ....Imaging Cat Scan: Report Reviewed (Mild wall thickening along ascending and transverse colon w/ pericolic fat stranding due to either infectious or inflammatory causes ; hepatic steatosis) Problem List - Problems (1) Colitis Code(s): K52.9 - NONINFECTIVE GASTROENTERITIS AND COLITIS, UNSPECIFIED (2) Diabetes Code(s): E11.9 - TYPE 2 DIABETES MELLITUS WITHOUT COMPLICATIONS Qualifiers: Diabetes mellitus type: type 2 (3) Fever of unknown origin (FUO) Code(s): R50.9 - FEVER, UNSPECIFIED (4) HTN (hypertension) Code(s): I10 - ESSENTIAL (PRIMARY) HYPERTENSION Assessment/Plan 56 year old female pmh DM, HTN, HLD, seen by ID for evaluation of fever, diarrhea, leukocytosis likely 2/2 to infectious colitis -WBC trending down, 13.8 today -D/C antibiotics, patient is clinically improving and will not benefit from further antibiotic therapy -send rotavirus antibody -f/u GI
--- NOTE | 2017-04-26 14:18 | CON.CARD ---
Consult Consult Specialty:: Cardiology Referred by:: Francois Powell Reason for Consultation:: htn - History of Present Illness Chief Complaint: Fatigue, fever History of Present Illness: 56 year old female with a pmhx of htn, dm, and hld presenting with fever and fatigue. Had felt URI symptoms last week and than developed fatigue and feverish symptoms day prior to admission which worsened and was associated with diarrhea so patient came to ER. No chest pain, dyspnea, or palpitations. + cough with clear sputum. Says she is starting to feel much better. Temp 101.2 in ER with WBC 18 - History Source History Provided By: Patient, Medical Record - Past Medical History Cardio/Vascular: Yes: HTN Endocrine: Yes: Diabetes Mellitus - Alcohol/Substance Use Hx Alcohol Use: No - Smoking History Smoking history: Never smoked Have you smoked in the past 12 months: No Home Medications - Allergies Allergies/Adverse Reactions: Allergies Allergy/AdvReac Type Severity Reaction Status Date / Time No Known Allergies Allergy Verified 04/23/17 13:01 - Home Medications Home Medications: Ambulatory Orders Amlodipine Besylate [Norvasc -] 5 mg PO DAILY 04/23/17 Aspirin [ASA -] 81 mg PO DAILY 04/23/17 Insulin Glargine,Hum.rec.anlog [Lantus Solostar PEN (NF)] 50 units SQ DAILY Insulin Lispro [Humalog Kwikpen] 10 unit SQ TID 04/23/17 Losartan Potassium 100 mg PO DAILY 04/23/17 Metoprolol Succinate [Toprol Xl] 50 mg PO DAILY 04/23/17 Simvastatin 10 mg PO HS 04/23/17 Sitagliptin Phos/Metformin HCl [Janumet 50-1,000 mg Tablet] 1 each PO BID Vital Signs: Vital Signs Temperature 98.5 F 04/26/17 09:31 Pulse Rate 20 L 04/26/17 09:31 Respiratory Rate 100 H 04/26/17 09:31 Blood Pressure 140/63 04/26/17 09:31 O2 Sat by Pulse Oximetry (%) 96 04/25/17 21:00 Constitutional: Yes: No Distress Neck: Yes: WNL Respiratory: Yes: CTA Bilaterally Gastrointestinal: Yes: WNL Cardiovascular: Yes: Regular Rate and Rhythm JVD: No Carotid Bruit: No Heart Sounds: Yes: S1, S2 Murmur: No: Systolic Murmur Edema: No - Other Data Labs, Other Data: CBC, BMP 04/25/17 08:05 04/25/17 08:05 INR, PTT INR 1.14 (0.82-1.09) 04/23/17 13:35 Imaging - Results EKG: Image Reviewed Problem List - Problems (1) HTN (hypertension) Code(s): I10 - ESSENTIAL (PRIMARY) HYPERTENSION Assessment/Plan 56 year old female with a pmhx of htn, dm, and hld presenting with fever and fatigue. Had felt URI symptoms last week and than developed fatigue and feverish symptoms day prior to admission which worsened and was associated with diarrhea so patient came to ER. No chest pain, dyspnea, or palpitations. + cough with clear sputum. Says she is starting to feel much better. Temp 101.2 in ER with WBC 18 1) ID infectious work up and management as per primary team 2) HTN/CV patient with known h/o htn on metoprolol, losartan, and amlodipine. EKG: sinus tachy 118bpm, nl axis, nl st segments on admission. BP was elevated on presentation but seems to have improved on home meds as her symptoms/illness has improved. Will not increase any meds at this time as bp now is within acceptable range Continue to monitor and if needed has room to increase amlodipine in future. No further inpatient cardiac work up. Patient should follow up with her outpt investigative research specialist. Please call if needed
--- NOTE | 2017-04-26 15:05 | CON.GI ---
Consult Consult Specialty:: GI Referred by:: Jonathan Duenas NP Reason for Consultation:: Diarrhea - History of Present Illness Chief Complaint: I had diarrhea History of Present Illness: 56F [address] [facility] ER 04/23 for evaluation of "feeling strange, dizzy and cold for a few days". Triage vitals revealed T: 101.2 P: 124 BP: 179/99 and had a WBC of 18K. The day after she was admitted she then developed watery diarrhea. Called yesterday evening to evaluate diarrhea. She describes having 6 -8 watery BM's at its worst. She denies associated nausea, vomiting, abdominal pain, rectal bleeding. Prior to admission she denied any bowel complaints but did complain of feeling warm while she was experiencing what she thought was a head cold (nasal congestion, headache). She denies recent antibiotic use, change in her longstanding medications, recent travel, change in dietary patterns or sick contacts. She follows with chief medical director Dr. Vinicio leroy who performed EGD and colonoscopy on Ms. Kasepr 10/13: she brought the pathology results with her. Biopsies from her stomach were negative for h. pylori and a descending colon tubular adenoma was removed. She has been seen by ID, placed on Abx (levaquin and flagyl) and stool for C. Diff, culture were negative. Antibiotics have been discontinued. She had a CT scan raising question of colitis in the ascending and transverse colon. Underdistention was also pointed out. Overall her diarrhea has improved and had 2 semi formed BMs today. She denies similar episodes in the past. There is no family history of colorectal cancer or IBD. - History Source History Provided By: Patient, Medical Record - Past Medical History Cardio/Vascular: Yes: HTN, Hyperlipdemia Gastrointestinal: Yes: Other (Colon polyps: tubular adenoma left colon 10/13) Endocrine: Yes: Diabetes Mellitus (Type II, requires insulin) - Past Surgical History Additional Surgical History: Denies - Alcohol/Substance Use Hx Alcohol Use: Yes (Social) History of Substance Use: reports: None - Smoking History Smoking history: Never smoked Have you smoked in the past 12 months: No - Social History Usual Living Arrangement: Alone ADL: Independent Occupation: Unemployed Place of : [employer] [facility] History of Recent Travel: No Home Medications - Allergies Allergies/Adverse Reactions: Allergies Allergy/AdvReac Type Severity Reaction Status Date / Time No Known Allergies Allergy Verified 04/23/17 13:01 - Home Medications Home Medications: Ambulatory Orders Amlodipine Besylate [Norvasc -] 5 mg PO DAILY 04/23/17 Aspirin [ASA -] 81 mg PO DAILY 04/23/17 Insulin Glargine,Hum.rec.anlog [Lantus Solostar PEN (NF)] 50 units SQ DAILY Insulin Lispro [Humalog Kwikpen] 10 unit SQ TID 04/23/17 Losartan Potassium 100 mg PO DAILY 04/23/17 Metoprolol Succinate [Toprol Xl] 50 mg PO DAILY 04/23/17 Simvastatin 10 mg PO HS 04/23/17 Sitagliptin Phos/Metformin HCl [Janumet 50-1,000 mg Tablet] 1 each PO BID Family Disease History - Family Disease History Family Disease History: Other: Father ( 54: in sleep), Mother ( 74 : in sleep, heart problems), Brother (3 brother, 1 40's: asthma, 1 35, asthma), Sister (5 sisters, 1 25 of "blood poisoning"), Son (1, healthy) Other Family History: No family history of colorectal cancer or other GI malignancy Review of Systems - Review of Systems Constitutional: reports: Chills (previously) Cardiovascular: denies: Chest Pain, Palpitations, Shortness of Breath Gastrointestinal: reports: Diarrhea. denies: Abdominal Pain, Melena, Rectal Bleeding, Vomiting, Vomiting Blood Genitourinary: denies: Burning Physical Exam-GI Vital Signs: Vital Signs Temperature 98.5 F 04/26/17 09:31 Pulse Rate 20 L 04/26/17 09:31 Respiratory Rate 100 H 04/26/17 09:31 Blood Pressure 140/63 04/26/17 09:31 O2 Sat by Pulse Oximetry (%) 96 04/25/17 21:00 Constitutional: Yes: Calm Eyes: No: Sclera Icterus Cardiovascular: Yes: Regular Rate and Rhythm. No: Murmur Respiratory: Yes: CTA Bilaterally Gastrointestinal Inspection: No: Distention, Scars ...Auscultate: Yes: Hyperactive Bowel Sounds ...Palpate: Yes: Soft. No: Guarding, Hepatomegaly, Splenomegaly, Tenderness ...Percussion: No: Tympanitic ...Rectal Exam: Yes: Other (No external lesions, no masses, light brown stool in rectal vault, guaiac negative) Edema: No Neurological: Yes: Alert, Oriented Labs: CBC, BMP 04/25/17 08:05 04/25/17 08:05 INR, PTT INR 1.14 (0.82-1.09) 04/23/17 13:35 Hepatic Panel Total Bilirubin 0.8 mg/dL (0.2-1.0) D 04/25/17 08:05 AST 16 U/L (15-37) 04/25/17 08:05 ALT 35 U/L (12-78) 04/25/17 08:05 Alkaline Phosphatase 72 U/L (45-117) 04/25/17 08:05 Albumin 2.8 g/dl (3.4-5.0) L 04/25/17 08:05 C. Diff, stool culture negative Norovirus Pending Imaging - Results Cat Scan: Report Reviewed, Image Reviewed Problem List - Problems (1) Colitis Assessment/Plan: Acute colitis: Clinically Ms. Kasper seems to be improving. I question if the fevers and leukocytosis she was experiencing were related to her URI complaoints as well. Suspect self limited infectious etiology I advised the following for now: Stool for O&P, crypro/giardia ordered Norovirus pending Lactose free diet If continued improvement no objection to D/C home. I explained to Ms. Kasper that she should also schedule follow-up with her chief medical director Dr. Vinicio Leroy upon discharge and information from the admission should be faxed to his office Code(s): K52.9 - NONINFECTIVE GASTROENTERITIS AND COLITIS, UNSPECIFIED (2) Diarrhea Code(s): R19.7 - DIARRHEA, UNSPECIFIED
[2017-04-26] MEDS: SODIUM CHLORIDE 1,000 ML IV SCH (17:51)
[2017-04-26] MEDS: ATORVASTATIN CA 10 MG TABLET (FP) PO SCH (22:32)
[2017-04-27] MEDS: SODIUM CHLORIDE 1,000 ML IV SCH (01:25)
[2017-04-27] MEDS: sitaGLIPtin PHOSPHATE 50 MG TABLET PO SCH (06:36)
[2017-04-27] MEDS: INSULIN DETEMIR 100 UNITS/ML MDV SQ SCH (06:39)
[2017-04-27 07:30] VITALS: PULSE 88
[2017-04-27] MEDS ORDERED: PT OWN MED DRAWER 7, Y5N ONE ×2 (08:25→09:28)
[2017-04-27] MEDS: INSULIN (NOVOLOG) ASPART 100 UNITS/ML 10ML VIAL SQ SCH ×2 (08:26→11:53)
[2017-04-27] MEDS: METOPROLOL SUCCINATE 50 MG TAB.SR.24H (FP) PO SCH (09:34)
[2017-04-27] MEDS: amLODIPine BESYLATE 5 MG TABLET (FP) PO SCH (09:34)
[2017-04-27] MEDS: HEPARIN NA (PORCINE) 5,000 UNITS/ML 1ML VIAL SQ SCH (09:34)
[2017-04-27] MEDS: LOSARTAN POTASSIUM 50 MG TABLET (FP) PO SCH (09:34)
[2017-04-27] MEDS: ASPIRIN 81 MG CHEWABLE TABLETS PO SCH (09:34)
[2017-04-27 09:38] VITALS: BP 154/88; TEMP 98.2
--- NOTE | 2017-04-27 09:54 | PN ---
Progress Note, Physician Chief Complaint: Abdominal pain, diarrhea, fever History of Present Illness: -seen by ID -repeat labs -no fever -cdiff negative -could be of viral origin -to be seen by GI and cardiology -RACHAEL DAMICO Just to make it clear, Patient was given Azithromycin outpatient for URI but never took it because as per patient she previously did not like the side effects, hence did not tolerate it. - Current Medication List Current Medications: Active Medications Acetaminophen (Tylenol -) 650 mg PO QID PRN PRN Reason: FEVER Last Admin: 04/24/17 06:27 Dose: 650 mg Amlodipine Besylate (Norvasc -) 5 mg PO DAILY [facility] Last Admin: 04/27/17 09:34 Dose: 5 mg Aspirin (Asa -) 81 mg PO DAILY [facility] Last Admin: 04/27/17 09:34 Dose: 81 mg Atorvastatin Calcium (Lipitor -) 10 mg PO HS [facility] Last Admin: 04/26/17 22:32 Dose: 10 mg Heparin Sodium (Porcine) (Heparin -) 5,000 unit SQ BID [facility] Last Admin: 04/27/17 09:34 Dose: 5,000 unit Sodium Chloride (Normal Saline -) 1,000 mls @ 75 mls/hr IV ASDIR [facility] Last Admin: 04/27/17 01:25 Dose: 75 mls/hr Insulin Aspart (Novolog Vial) 10 units SQ TIDCM [facility] Last Admin: 04/27/17 08:26 Dose: 10 units Insulin Detemir (Levemir Vial) 50 units SQ AM [facility] Last Admin: 04/27/17 06:39 Dose: 50 units Losartan Potassium (Cozaar -) 100 mg PO DAILY [facility] Last Admin: 04/27/17 09:34 Dose: 100 mg Metoprolol Succinate (Toprol Xl -) 50 mg PO DAILY [facility] Last Admin: 04/27/17 09:34 Dose: 50 mg Pantoprazole Sodium (Protonix -) 40 mg PO DAILY [facility] Sitagliptin Phosphate (Januvia -) 50 mg PO BIDAC [facility] Last Admin: 04/27/17 06:36 Dose: 50 mg - Objective Vital Signs: Vital Signs Temperature 98.2 F 04/27/17 09:10 Pulse Rate 88 04/27/17 09:10 Respiratory Rate 16 04/27/17 09:10 Blood Pressure 154/88 04/27/17 09:10 O2 Sat by Pulse Oximetry (%) 97 04/26/17 22:00 Constitutional: Yes: Well Nourished, No Distress, Calm Respiratory: Yes: Regular Gastrointestinal: Yes: Normal Bowel Sounds, Tenderness, Epigastrium Edema: No Peripheral Pulses WNL: Yes Neurological: Yes: Alert, Oriented Labs: CBC, BMP 04/25/17 08:05 04/25/17 08:05 INR, PTT INR 1.14 (0.82-1.09) 04/23/17 13:35 Problem List - Problems (1) Diabetes Assessment/Plan: -uncontrolled with HgA1c at 10.7 -will keep januvia at 50 mg BID as per endocrinology, goal fasting blood glucose below 160 -on SQ Novolog TID -levemir 50u daily -seen by endocrinology -RD consult Code(s): E11.9 - TYPE 2 DIABETES MELLITUS WITHOUT COMPLICATIONS Qualifiers: Diabetes mellitus type: type 2 (2) Fever of unknown origin (FUO) Code(s): R50.9 - FEVER, UNSPECIFIED (3) HTN (hypertension) Assessment/Plan: -mostly under control -ARB, CCB and BB -cardiology consult appreciated, -maintain current medication regimen Code(s): I10 - ESSENTIAL (PRIMARY) HYPERTENSION (4) Diarrhea Assessment/Plan: -cdiff negative -seen by GI -CT abdomen suggest possible colitis -no diarrhea, soft stools -would have pt f/u with GI outpatient Code(s): R19.7 - DIARRHEA, UNSPECIFIED Assessment/Plan see problem list
[2017-04-27] MEDS ORDERED: PANTOPRAZOLE 40 MG TABLET (FP) PO SCH (10:00)
--- NOTE | 2017-04-27 10:48 | PN ---
Progress Note (short form) - Note Progress Note: doing well stools now formed no abdominal pain no fevers Vital Signs Period Temp Pulse Resp BP Sys/Allen Pulse Ox Last 24 Hr 97.8 F-98.7 F 83-88 16-20 140-158/76-94 95-97 cor-rrr lungs clear abd soft,nt ext no edema CBC, BMP 04/25/17 08:05 04/25/17 08:05 Microbiology 04/23/17 13:15 Blood - Peripheral Venous Blood Culture - Preliminary NO GROWTH OBTAINED AFTER 72 HOURS, INCUBATION TO CONTINUE FOR 2 DAYS. 04/23/17 13:15 Blood - Peripheral Venous Blood Culture - Preliminary NO GROWTH OBTAINED AFTER 72 HOURS, INCUBATION TO CONTINUE FOR 2 DAYS. 04/23/17 16:49 Stool Salmonella/Shigella Culture - Final NO GROWTH OF SALMONELLA OR SHIGELLA SPECIES OBTAINED 04/23/17 16:49 Stool Campylobacter Culture - Final NO GROWTH OF CAMPYLOBACTER SPECIES OBTAINED 04/23/17 16:49 Stool Yersinia Culture - Final NO GROWTH OF YERSINIA SPECIES OBTAINED 04/23/17 16:49 Stool Vibrio Culture - Final NO GROWTH OF VIBRIO SPECIES OBTAINED 04/23/17 16:49 Stool Escherichia coli 0157 Culture - Final NO GROWTH OF E COLI 0157 OBTAINED 04/26/17 10:15 Stool Norovirus GI - Preliminary 04/26/17 10:15 Stool Norovirus GII - Preliminary 04/23/17 13:38 Urine - Urine Clean Catch Urine Culture - Final Contaminated: Please Repeat 04/24/17 07:30 Stool Clostridium difficile Antigen (JERMAINE) - Final 04/24/17 07:30 Stool Clostridium difficile Toxin Assay - Final a/p probable viral gastroenteritis, resolving off antiibiotics improving clinically diet discussed please call back if needed
== END 2017-04-27 12:54 | disposition home or self-care (01) | DRG 720 ==
LOC: JER 12:50 → JERBED 16:04 → J5S 22:21
PROVIDERS: ADMIT Family Medicine; ATTEND Family Medicine
DX: A41.9 Sepsis, unspecified organism (principal); A08.4 Viral intestinal infection, unspecified; E11.43 Type 2 diabetes mellitus with diabetic autonomic (poly)neuropathy; K31.84 Gastroparesis; Z68.41 Body mass index [BMI] 40.0-44.9, adult; E11.65 Type 2 diabetes mellitus with hyperglycemia; E86.0 Dehydration; E86.1 Hypovolemia; R19.7 Diarrhea, unspecified; E66.9 Obesity, unspecified; I10 Essential (primary) hypertension; E78.5 Hyperlipidemia, unspecified; Z87.891 Personal history of nicotine dependence; Z79.4 Long term (current) use of insulin
CPT/HCPCS: 36415; 71010-TC; 74176-TC; 80053; 80061; 81003; 81015; 82272; 82553; 82803; 83036; 83605; 83721; 84484; 85025; 85610; 85730; 86140; 86850; 86900; 86901; 87040; 87045; 87046; 87086; 87177; 87209; 87324; 87328; 87329; 87449; 87798; 93005; 93010; 99284-25; J1644

== ENCOUNTER 2017-12-11 17:33 | Observation (INO) | payer OTHER ==
--- NOTE | 2017-12-11 17:46 | PDOC ---
Rapid Medical Evaluation Time Seen by Provider: 12/11/17 17:42 Medical Evaluation: Allergies Allergy/AdvReac Type Severity Reaction Status Date / Time No Known Allergies Allergy Verified 12/11/17 17:41 12/11/17 17:42 Pt c/o: elevated glucose, recent bx which pt was concerned about cancer and forgot to take her insulin last night and had a high reading and PMD , Dr. Xiong, had a reading <500, pt asymptomatic except mild lightheadedness Pt on brief exam: vss except hr 107 Pt ordered for: cbc, cmp, acetone, vbg, ua, ekg, ivf, iv access Pt to proceed to the ED 12/11/17 17:46 Discharge Disposition - Diagnosis Elevated glucose level - Referrals - Patient Instructions - Post Discharge Activity
[2017-12-11] MEDS ORDERED: SODIUM CHLORIDE 1,000 ML IV STA (17:47)
[2017-12-11 18:22] LABS: BASO % 0.6 % (0-2.0); EOS % 8.9 % (0-4.5); HEMATOCRIT 42.8 % (32.4-45.2); HEMOGLOBIN 13.8 GM/dL (10.7-15.3); LYMPH % 30.7 % (8-40); MCH 26.5 pg (25.7-33.7); MCHC 32.3 g/dl (32.0-36.0); MEAN PLT VOLUME 9.8 fl (7.5-11.1); MONO % 8.4 % (3.8-10.2); NEUT % 51.4 % (42.8-82.8); PLATELET COUNT 367 K/MM3 (134-434); RBC 5.22 M/mm3 (3.60-5.2); RDW 14.4 % (11.6-15.6)
[2017-12-11 18:23] LABS: VENOUS PH 7.42 (7.32-7.42)
[2017-12-11 18:24] LABS: VENOUS PC02 46.9 mmHg (38-52); VENOUS PO2 42.2 mmHg (28-48)
[2017-12-11 18:55] LABS: URINE APPEARANCE CLEAR; URINE BILIRUBIN NEGATIVE (<2.0 mg/dL); URINE BLOOD NEGATIVE (NEGATIVE); URINE COLOR STRAW; URINE GLUCOSE (UA) 3+ (NEGATIVE); URINE KETONE NEGATIVE (NEGATIVE); URINE LEUK ESTERASE NEGATIVE (NEGATIVE); URINE NITRITE NEGATIVE (NEGATIVE); URINE PROTEIN NEGATIVE (NEGATIVE); URINE UROBILINOGEN NEGATIVE mg/dL (0.2-1.0)
[2017-12-11 18:56] LABS: ACETONE SERUM NEGATIVE (NEGATIVE)
[2017-12-11 19:05] LABS: ALBUMIN 3.7 g/dl (3.4-5.0); ALK PHOS 86 U/L (45-117); ANION GAP 8 (8-16); BILIRUBIN,TOTAL 0.5 mg/dL (0.2-1.0); BLOOD UREA NITROGEN 18 mg/dL (7-18); CALCIUM 9.7 mg/dL (8.5-10.1); CHLORIDE 98 mmol/L (98-107); CO2 29 mmol/L (21-32); CREATININE 1.2 mg/dL (0.55-1.02); POTASSIUM 4.2 mmol/L (3.5-5.1); SGOT/AST 11 U/L (15-37); SGPT/ALT 29 U/L (12-78); SODIUM 135 mmol/L (136-145); TOT PROT 7.8 g/dl (6.4-8.2)
[2017-12-11 19:06] LABS: GLUCOSE,RANDOM 434 mg/dL (74-106)
--- NOTE | 2017-12-11 19:28 | PDOC ---
History of Present Illness - General History Source: Patient Exam Limitations: No Limitations - History of Present Illness Initial Comments: 12/11/17 19:34 The patient is a 57 year old female with a significant PMH of diabetes, HTN, and hyperlipidemia who presents to the emergency department from Dr. Mcelroy office for evaluation of elevated blood sugar. The patient states she was sent to the ED as Dr. Xiong noted the patients blood sugar has been running high over the past day. She states he wants to admit her for better blood sugar control. The patient denies fevers or chills. She denies any other complaints. The patient denies chest pain, shortness of breath, headache and dizziness. Denies nausea, vomit, diarrhea and constipation. Denies dysuria, frequency, urgency and hematuria. Allergies: NKA Past surgical history: Tonsillectomy. Social history: No reported cigarette, alcohol, or drug use. PCP: Dr. Xiong <Best Guardado - Last Filed: 12/11/17 19:35> - General History Source: Patient <Daniel Keyes - Last Filed: 12/12/17 19:23> - General Chief Complaint: Blood Sugar Problem Stated Complaint: SENT BY PCP Time Seen by Provider: 12/11/17 17:42 Past History <Best Guardado - Last Filed: 12/11/17 19:35> - Past Medical History COPD: No Diabetes: Yes HTN: Yes Hypercholesterolemia: Yes - Suicide/Smoking/Psychosocial Hx Smoking History: Never smoked Have you smoked in the past 12 months: No Hx Alcohol Use: Yes (Social) Drug/Substance Use Hx: No Substance Use Type: None <Daniel Keyes - Last Filed: 12/12/17 19:23> - Past Medical History Allergies/Adverse Reactions: Allergies Allergy/AdvReac Type Severity Reaction Status Date / Time No Known Allergies Allergy Verified 12/11/17 17:41 Home Medications: Ambulatory Orders Amlodipine Besylate [Norvasc -] 5 mg PO DAILY 04/23/17 Aspirin [ASA -] 81 mg PO DAILY 04/23/17 Metoprolol Succinate [Toprol Xl] 50 mg PO DAILY 04/23/17 Acetaminophen [Tylenol .Regular Strength -] 650 mg PO Q4H PRN tablet 12/12/17 Atorvastatin Ca [Lipitor] 10 mg PO HS #30 tablet 12/12/17 Ibuprofen 800 mg PO TID PRN #90 tablet 12/12/17 Losartan Potassium [Cozaar -] 100 mg PO DAILY tablet 12/12/17 metFORMIN HCL [Glucophage -] 500 mg PO BID #60 tab 12/12/17 Review of Systems - Review of Systems Able to Perform ROS?: Yes Comments:: 12/11/17 19:34 CONSTITUTIONAL: (+) Elevated blood sugar. Absent: fever, chills, diaphoresis, generalized weakness, malaise, loss of appetite HEENT: Absent: rhinorrhea, nasal congestion, throat pain, throat swelling, difficulty swallowing, mouth swelling, ear pain, eye pain, visual Changes CARDIOVASCULAR: Absent: chest pain, syncope, palpitations, irregular heart rate, lightheadedness , peripheral edema RESPIRATORY: Absent: cough, shortness of breath, dyspnea with exertion, orthopnea, wheezing, stridor, hemoptysis GASTROINTESTINAL: Absent: abdominal pain, abdominal distension, nausea, vomiting, diarrhea, constipation, melena, hematochezia GENITOURINARY: Absent: dysuria, frequency, urgency, hesitancy, hematuria, flank pain, genital pain MUSCULOSKELETAL: Absent: myalgia, arthralgia, joint swelling SKIN: Absent: rash, itching, pallor HEMATOLOGIC/IMMUNOLOGIC: Absent: easy bleeding, easy bruising, lymphadenopathy, frequent infections ENDOCRINE: Absent: unexplained weight gain, unexplained weight loss, heat intolerance, cold intolerance NEUROLOGIC: Absent: headache, focal weakness or paresthesias, dizziness, unsteady gait, seizure, mental status changes, bladder or bowel incontinence PSYCHIATRIC: Absent: anxiety, depression, suicidal or homicidal ideation, hallucinations. <Best Guardado - Last Filed: 12/11/17 19:35> *Physical Exam - Vital Signs Last Vital Signs Temp Pulse Resp BP Pulse Ox 98.8 F 107 H 19 147/87 95 12/11/17 17:38 12/11/17 17:38 12/11/17 17:38 12/11/17 17:38 12/11/17 17:38 - Physical Exam Comments: 12/11/17 19:35 GENERAL: Well developed, well nourished. Awake and alert. No acute distress. HEENT: Normocephalic, atraumatic. PERRLA, EOMI. No conjunctival pallor. Sclera are non- icteric. Moist mucous membranes. Oropharynx is clear. NECK: Supple. Full ROM. No JVD. Carotid pulses 2+ and symmetric, without bruits. No thyromegaly. No lymphadenopathy. CARDIOVASCULAR: Regular rate and rhythm. No murmurs, rubs, or gallops. Distal pulses are 2+ and symmetric. PULMONARY: No evidence of respiratory distress. Lungs clear to auscultation bilaterally. No wheezing, rales or rhonchi. ABDOMINAL: Soft. Non-tender. Non-distended. No rebound or guarding. No organomegaly. Normoactive bowel sounds. MUSCULOSKELETAL Normal range of motion at all joints. No bony deformities or tenderness. No CVA tenderness. EXTREMITIES: No cyanosis. No clubbing. No edema. No calf tenderness. SKIN: Warm and dry. Normal capillary refill. No rashes. No jaundice. NEUROLOGICAL: Alert, awake, appropriate. Cranial nerves 2-12 intact. No deficits to light touch and temperature in face, upper extremities and lower extremities. No motor deficits in the in face, upper extremities and lower extremities. Normoreflexic in the upper and lower extremities. Normal speech. Toes are downgoing bilaterally. Gait is normal without ataxia. PSYCHIATRIC: Cooperative. Good eye contact. Appropriate mood and affect. <Best Guardado - Last Filed: 12/11/17 19:35> - Vital Signs Last Vital Signs Temp Pulse Resp BP Pulse Ox 98.8 F 107 H 19 147/87 95 12/11/17 17:38 12/11/17 17:38 12/11/17 17:38 12/11/17 17:38 12/11/17 17:38 <Daniel Keyes - Last Filed: 12/12/17 19:23> Heart Score/ECG Review #1 12/11/17 19:35 EKG done at 18:25 Vent rate 97 bpm Normal sinus rhythm Normal ECG <Best Guardado - Last Filed: 12/11/17 19:35> ED Treatment Course - LABORATORY CBC & Chemistry Diagram: 12/11/17 18:11 12/11/17 18:11 - ADDITIONAL ORDERS Additional order review: Laboratory Results 12/11/17 12/11/17 12/11/17 18:24 18:11 18:11 VBG pH 7.42 POC VBG pCO2 46.9 POC VBG pO2 42.2 Mixed VBG HCO3 29.7 H Sodium 135 L Potassium 4.2 Chloride 98 Carbon Dioxide 29 Anion Gap 8 BUN 18 Creatinine 1.2 H Creat Clearance w eGFR 46.30 Random Glucose 434 H* Calcium 9.7 Total Bilirubin 0.5 D AST 11 L ALT 29 Alkaline Phosphatase 86 Total Protein 7.8 Albumin 3.7 Urine Color Straw Urine Appearance Clear Urine pH 7.0 D Ur Specific [place] 1.026 Urine Protein Negative Urine Glucose (UA) 3+ H D Urine Ketones Negative Urine Blood Negative Urine Nitrite Negative Urine Bilirubin Negative Urine Urobilinogen Negative Ur Leukocyte Esterase Negative Acetone, Qual Negative L 12/11/17 18:11 RBC 5.22 H MCV 82.0 MCHC 32.3 RDW 14.4 MPV 9.8 Neutrophils % 51.4 D Lymphocytes % 30.7 D Monocytes % 8.4 Eosinophils % 8.9 H D Basophils % 0.6 - Medications Given in the ED: ED Medications Discontinued Medications Generic Name Dose Route Start Last Admin Trade Name Freq PRN Reason Stop Dose Admin Sodium Chloride 1,000 mls @ 1,000 mls/hr 12/11/17 17:47 12/11/17 19:14 Normal Saline - IV 12/11/17 18:46 1,000 mls/hr ASDIR STA Administration <Best Guardado - Last Filed: 12/11/17 19:35> - LABORATORY CBC & Chemistry Diagram: 12/12/17 07:40 12/12/17 07:40 - ADDITIONAL ORDERS Additional order review: Laboratory Results 12/11/17 12/11/17 12/11/17 18:24 18:11 18:11 VBG pH 7.42 POC VBG pCO2 46.9 POC VBG pO2 42.2 Mixed VBG HCO3 29.7 H Sodium 135 L Potassium 4.2 Chloride 98 Carbon Dioxide 29 Anion Gap 8 BUN 18 Creatinine 1.2 H Creat Clearance w eGFR 46.30 Random Glucose 434 H* Calcium 9.7 Total Bilirubin 0.5 D AST 11 L ALT 29 Alkaline Phosphatase 86 Total Protein 7.8 Albumin 3.7 Urine Color Straw Urine Appearance Clear Urine pH 7.0 D Ur Specific [place] 1.026 Urine Protein Negative Urine Glucose (UA) 3+ H D Urine Ketones Negative Urine Blood Negative Urine Nitrite Negative Urine Bilirubin Negative Urine Urobilinogen Negative Ur Leukocyte Esterase Negative Acetone, Qual Negative L 12/11/17 18:11 RBC 5.22 H MCV 82.0 MCHC 32.3 RDW 14.4 MPV 9.8 Neutrophils % 51.4 D Lymphocytes % 30.7 D Monocytes % 8.4 Eosinophils % 8.9 H D Basophils % 0.6 - Medications Given in the ED: ED Medications Discontinued Medications Generic Name Dose Route Start Last Admin Trade Name Osman PRN Reason Stop Dose Admin Sodium Chloride 1,000 mls @ 1,000 mls/hr 12/11/17 17:47 12/11/17 19:14 Normal Saline - IV 12/11/17 18:46 1,000 mls/hr ASDIR STA Administration <Daniel Keyes - Last Filed: 12/12/17 19:23> Medical Decision Making - Medical Decision Making 12/12/17 19:23 Dr. Keyes: The scribe's documentation has been prepared under my direction and personally reviewed by me in its entirery. I confirm that the note above accurately reflects all work, treatment, procedures, and medical decision making performed by me. patient was admitted for blood glucose controll. <Daniel Keyes - Last Filed: 12/12/17 19:23> *DC/Admit/Observation/Transfer - Attestations Scribe Attestion: 12/11/17 19:35 Documentation prepared by Best Guardado, acting as veterinary medical officer for Daniel Keyes DO. <Best Guardado - Last Filed: 12/11/17 19:35> - Discharge Dispostion Admit: Yes <Daniel Keyes - Last Filed: 12/12/17 19:23> Diagnosis at time of Disposition: Elevated glucose level - Discharge Dispostion Disposition: HOME Condition at time of disposition: Stable
[2017-12-11] MEDS ORDERED: INSULIN REGULAR HUMAN 100 UNITS/ML *VIAL IVPUSH ONE (20:27)
--- NOTE | 2017-12-11 21:15 | HP ---
CHIEF COMPLAINT: Elevated Blood Sugar PCP: Dr. Xiong HISTORY OF PRESENT ILLNESS: 57 y/o woman PMH DM, HTN, HLD. Who was sent in to the ED for admission by her PCP for Elevated Blood Sugar. Patient reports having occasional nausea, dizziness and blurred vision when her "blood sugar is high". Patient reports having uncontrolled blood sugars x 2 months. Patient reports using her Omnipod but her blood sugars are still very high. She does admit to putting on weight over the winter and not always following her Diabetic exchange regimen. Patient reports recent fall now having swelling and tenderness to her left knee but can still ambulate. Patient denies fever, chills, cough, [place], SOB, CP, AP, V/D, constipation, dysuria. ER course was notable for: (1) Glucose- 434 (2) UA- +3 Glucose (3) Recent Travel: None PAST MEDICAL HISTORY: See HPI PAST SURGICAL HISTORY: Tonsillectomy Social History: Smoking: Never Alcohol: None Drugs: None Independent, unemployed Family History: Allergies No Known Allergies Allergy (Verified 12/11/17 17:41) HOME MEDICATIONS: Home Medications Medication Instructions Recorded Amlodipine Besylate [Norvasc -] 5 mg PO DAILY 04/23/17 Aspirin [ASA -] 81 mg PO DAILY 04/23/17 Insulin Glargine,Hum.rec.anlog 50 units SQ DAILY 04/23/17 [Lantus Solostar PEN -] Insulin Lispro [Humalog Kwikpen 10 unit SQ TID 04/23/17 U-200] Losartan Potassium 100 mg PO DAILY 04/23/17 Metoprolol Succinate [Toprol Xl] 50 mg PO DAILY 04/23/17 Simvastatin 10 mg PO HS 04/23/17 Sitagliptin Phos/Metformin HCl 1 each PO BID 04/23/17 [Janumet 50-1,000 mg Tablet] Insulin (Levemir) [Levemir Vial] 50 units SQ AM ml 04/27/17 Sitagliptin Phosphate [Januvia -] 50 mg PO BIDAC tablet 04/27/17 metFORMIN HCL [Glucophage -] 1,000 mg PO BIDAC tablet 04/27/17 REVIEW OF SYSTEMS CONSTITUTIONAL: diaphoresis Absent: fever, chills, generalized weakness, malaise, loss of appetite, weight change HEENT: visual changes Absent: rhinorrhea, nasal congestion, throat pain, throat swelling, difficulty swallowing, mouth swelling, ear pain, eye pain CARDIOVASCULAR: Absent: chest pain, syncope, palpitations, irregular heart rate, lightheadedness , peripheral edema RESPIRATORY: Absent: cough, shortness of breath, dyspnea with exertion, orthopnea, wheezing, stridor, hemoptysis GASTROINTESTINAL: Absent: abdominal pain, abdominal distension, nausea, vomiting, diarrhea, constipation, melena, hematochezia GENITOURINARY: Absent: dysuria, frequency, urgency, hesitancy, hematuria, flank pain, genital pain MUSCULOSKELETAL: Absent: myalgia, arthralgia, joint swelling, back pain, neck pain SKIN: Absent: rash, itching, pallor HEMATOLOGIC/IMMUNOLOGIC: Absent: easy bleeding, easy bruising, lymphadenopathy, frequent infections ENDOCRINE: Absent: unexplained weight gain, unexplained weight loss, heat intolerance, cold intolerance NEUROLOGIC: dizziness Absent: headache, focal weakness or paresthesias, unsteady gait, seizure, mental status changes, bladder or bowel incontinence PSYCHIATRIC: Absent: anxiety, depression, suicidal or homicidal ideation, hallucinations. PHYSICAL EXAMINATION Vital Signs - 24 hr 12/11/17 17:38 Temperature 98.8 F Pulse Rate 107 H Respiratory 19 Rate Blood Pressure 147/87 O2 Sat by Pulse 95 Oximetry (%) GENERAL: Obese, awake, alert, and fully oriented, in no acute distress. HEAD: Normal with no signs of trauma. EYES: Pupils equal, round and reactive to light, extraocular movements intact, sclera anicteric, conjunctiva clear. No lid lag. EARS, NOSE, THROAT: Ears normal, nares patent, oropharynx clear without exudates. Moist mucous membranes. NECK: Normal range of motion, supple without lymphadenopathy, JVD, or masses. LUNGS: Breath sounds equal, clear to auscultation bilaterally. No wheezes, and no crackles. No accessory muscle use. HEART: Regular rate and rhythm, normal S1 and S2 without murmur, rub or gallop. ABDOMEN: Soft, nontender, not distended, normoactive bowel sounds, no guarding, no rebound, no masses. No hepatomegaly or splenomegaly. MUSCULOSKELETAL: Normal range of motion at all joints. No bony deformities. No CVA tenderness. + left knee medial tenderness and swelling UPPER EXTREMITIES: 2+ pulses, warm, well-perfused. No cyanosis. No clubbing. No peripheral edema. LOWER EXTREMITIES: 2+ pulses, warm, well-perfused. No calf tenderness. No peripheral edema. NEUROLOGICAL: Cranial nerves II-XII intact. Normal speech. Normal gait. PSYCHIATRIC: Cooperative. Good eye contact. Appropriate mood and affect. SKIN: Warm, dry, normal turgor, no rashes. normal capillary refill. Eccyhmotic bruising to left medial knee noted Laboratory Results - last 24 hr 12/11/17 12/11/17 12/11/17 18:11 18:11 18:11 WBC 10.0 RBC 5.22 H Hgb 13.8 D Hct 42.8 D MCV 82.0 MCH 26.5 MCHC 32.3 RDW 14.4 Plt Count 367 MPV 9.8 Neutrophils % 51.4 D Lymphocytes % 30.7 D Monocytes % 8.4 Eosinophils % 8.9 H D Basophils % 0.6 VBG pH 7.42 POC VBG pCO2 46.9 POC VBG pO2 42.2 Mixed VBG HCO3 29.7 H Sodium 135 L Potassium 4.2 Chloride 98 Carbon Dioxide 29 Anion Gap 8 BUN 18 Creatinine 1.2 H Creat Clearance w eGFR 46.30 POC Glucometer Random Glucose 434 H* Calcium 9.7 Total Bilirubin 0.5 D AST 11 L ALT 29 Alkaline Phosphatase 86 Total Protein 7.8 Albumin 3.7 Urine Color Urine Appearance Urine pH Ur Specific [place] Urine Protein Urine Glucose (UA) Urine Ketones Urine Blood Urine Nitrite Urine Bilirubin Urine Urobilinogen Ur Leukocyte Esterase Acetone, Qual Negative L 12/11/17 12/11/17 18:24 20:24 WBC RBC Hgb Hct MCV MCH MCHC RDW Plt Count MPV Neutrophils % Lymphocytes % Monocytes % Eosinophils % Basophils % VBG pH POC VBG pCO2 POC VBG pO2 Mixed VBG HCO3 Sodium Potassium Chloride Carbon Dioxide Anion Gap BUN Creatinine Creat Clearance w eGFR POC Glucometer > 400 Random Glucose Calcium Total Bilirubin AST ALT Alkaline Phosphatase Total Protein Albumin Urine Color Straw Urine Appearance Clear Urine pH 7.0 D Ur Specific [place] 1.026 Urine Protein Negative Urine Glucose (UA) 3+ H D Urine Ketones Negative Urine Blood Negative Urine Nitrite Negative Urine Bilirubin Negative Urine Urobilinogen Negative Ur Leukocyte Esterase Negative Acetone, Qual ASSESSMENT/PLAN: 57 y/o woman PMH of DM, HTN, HLD. Admitted for Uncontrolled DM. Plan: 1. Endocrinology Uncontrolled DM - BGMs - ISS - Will hold oral glycemics for now 2/2 tighter glycemic control - Patient does not have her Omnipod, will defer to Endocrinology - Appreciate Endocrinology consult - RD consult - Hgba1c in am 2. Cardiology Hypertension Hyperlipdemia - stable - continue Norvasc, Losartan 3.Ortho Left Knee Pain - s/p fall -xray l- knee r/o fx - Elevate extremity - Consider Ortho consult if no improvement 4. FEN - PO fluids - Replete lytes prn - Diabetic, Low Na Diet 5. DVT ppx - OOB - SCDs - Heparin SQ Code Status: Full Code Dispo: Requires Inpatient Care Problem List - Problem (1) Uncontrolled diabetes mellitus Code(s): E11.65 - TYPE 2 DIABETES MELLITUS WITH HYPERGLYCEMIA (2) Pain and swelling of left knee Code(s): M25.562 - PAIN IN LEFT KNEE; M25.462 - EFFUSION, LEFT KNEE (3) HLD (hyperlipidemia) Code(s): E78.5 - HYPERLIPIDEMIA, UNSPECIFIED (4) HTN (hypertension) Code(s): I10 - ESSENTIAL (PRIMARY) HYPERTENSION (5) DVT prophylaxis Code(s): CXT4327 - Visit type - Emergency Visit Emergency Visit: Yes ED Registration Date: 12/11/17 Care time: The patient presented to the Emergency Department on the above date and was hospitalized for further evaluation of their emergent condition. - New Patient This patient is new to me today: Yes Date on this admission: 12/11/17 - Critical Care Critical Care patient: No Hospitalist Screening - Colonoscopy Questionnaire Colonoscopy Questionnaire: Colonoscopy Questionnaire - Patient: 50 - 75 years old and never had a screening colonoscopy: No History of colon or rectal polyps, or CA: No History of IBD, Crohn's disease or UC: No History of abdominal radiation therapy as a child: No - Relative: 1 with colon or rectal CA, or polyps at age 60 or younger: No Colon or rectal CA diagnosed at age 45 or younger: No Multiple relatives with colon or rectal CA: No - Outcome: Screening Result: Negative Screen
[2017-12-11] MEDS ORDERED: ATORVASTATIN CA 10 MG TABLET (FP) PO SCH (22:00)
[2017-12-11] MEDS ORDERED: HEMOQUE TEST 1 EACH EACH ONE (22:28)
[2017-12-11] MEDS: INSULIN SLIDING SCALE (NOVOLOG) 1 VIAL SQ SCH (22:49)
[2017-12-11] MEDS: HEPARIN NA (PORCINE) 5,000 UNITS/ML 1ML VIAL SQ SCH (22:49)
[2017-12-11] MEDS ORDERED: HEPARIN NA (PORCINE) 5,000 UNITS/ML 1ML VIAL ONE (22:53)
[2017-12-11] MEDS ORDERED: INSULIN (NOVOLOG) ASPART 100 UNITS/ML 10ML VIAL ONE (22:54)
[2017-12-11] MEDS ORDERED: SODIUM CHLORIDE 1,000 ML IV SCH (23:00)
[2017-12-12 00:25] VITALS: BMI 40.7
--- NOTE | 2017-12-12 00:57 | CONSULT ---
Consult Consult Specialty:: endocrine Reason for Consultation:: diabetes mellitus uncontrolled - History of Present Illness Chief Complaint: high sugars pain and swelling in joints History of Present Illness: 57 y/o woman PMH DM, HTN, HLD. Who was sent in to the ED Elevated Blood Sugar. she has had occasional nausea, dizziness and blurred vision when her "blood sugar is high". Patient she has had elevated blood sugars since developed swelling in hands and around her fingers with nodules formation,recently found to have sarcoidosis on biopsy of the left hand.Patient reports using her Omnipod but her blood sugars are still very high. She does admit to putting on weight over the winter and not always following her Diabetic exchange regimen. Patient denies fever, chills, cough, - History Source History Provided By: Patient - Past Medical History Cardio/Vascular: Yes: HTN, Hyperlipdemia Gastrointestinal: Yes: Other (Colon polyps: tubular adenoma left colon 10/13) Endocrine: Yes: Diabetes Mellitus (Type II, requires insulin) - Alcohol/Substance Use Hx Alcohol Use: Yes (Social) History of Substance Use: reports: None - Smoking History Smoking history: Never smoked Have you smoked in the past 12 months: No - Social History Usual Living Arrangement: Alone ADL: Independent Occupation: Unemployed History of Recent Travel: No Home Medications - Allergies Allergies/Adverse Reactions: Allergies Allergy/AdvReac Type Severity Reaction Status Date / Time No Known Allergies Allergy Verified 12/11/17 17:41 - Home Medications Home Medications: Ambulatory Orders Amlodipine Besylate [Norvasc -] 5 mg PO DAILY 04/23/17 Aspirin [ASA -] 81 mg PO DAILY 04/23/17 Metoprolol Succinate [Toprol Xl] 50 mg PO DAILY 04/23/17 metFORMIN HCL [Glucophage -] 500 mg PO AM 12/11/17 Family Disease History - Family Disease History Family Disease History: Other: Father ( 54: in sleep), Mother ( 74 : in sleep, heart problems), Brother (3 brother, 1 40's: asthma, 1 35, asthma), Sister (5 sisters, 1 25 of "blood poisoning"), Son (1, healthy) Review of Systems - Review of Systems Constitutional: reports: Lethargy, Weakness Eyes: reports: Blurred Vision HENT: reports: No Symptoms Neck: reports: No Symptoms Cardiovascular: reports: Shortness of Breath Respiratory: reports: Exercise Intolerance, SOB on Exertion Gastrointestinal: reports: Bloating Genitourinary: reports: No Symptoms Breasts: reports: No Symptoms Reported Musculoskeletal: reports: Muscle Pain, Muscle Cramps, Muscle Weakness Integumentary: reports: No Symptoms Neurological: reports: Unsteady Gait, Weakness Physical Exam Vital Signs: Vital Signs Temperature 98.1 F 12/11/17 23:02 Pulse Rate 98 H 12/11/17 23:02 Respiratory Rate 20 12/11/17 23:02 Blood Pressure 140/84 12/11/17 23:02 O2 Sat by Pulse Oximetry (%) 98 12/11/17 23:02 Constitutional: Yes: Anxious Eyes: Yes: EOM Intact HENT: Yes: Normocephalic Neck: Yes: Trachea Midline Cardiovascular: Yes: Regular Rate and Rhythm Respiratory: Yes: CTA Bilaterally Gastrointestinal: Yes: Normal Bowel Sounds ...Rectal Exam: Yes: Deferred Renal/: Yes: WNL Musculoskeletal: Yes: Joint Stiffness, Joint Swelling, Muscle Pain, Muscle Weakness Edema: Yes Edema: LLE: 1+ Neurological: Yes: Alert, Oriented Labs: CBC, BMP 12/11/17 18:11 12/11/17 18:11 Problem List - Problems (1) Sarcoid arthritis Code(s): D86.86 - SARCOID ARTHROPATHY (2) Sarcoid arthropathy Code(s): D86.86 - SARCOID ARTHROPATHY (3) Elevated glucose level Code(s): R73.09 - OTHER ABNORMAL GLUCOSE (4) HLD (hyperlipidemia) Code(s): E78.5 - HYPERLIPIDEMIA, UNSPECIFIED (5) Uncontrolled diabetes mellitus Code(s): E11.65 - TYPE 2 DIABETES MELLITUS WITH HYPERGLYCEMIA Assessment/Plan Current Active Problems DVT prophylaxis (Acute) Elevated glucose level (Acute) HLD (hyperlipidemia) (Acute) Sarcoid arthritis (Acute) Sarcoid arthropathy (Acute) Uncontrolled diabetes mellitus (Acute) Abnormal Lab Results 12/11/17 12/11/17 12/11/17 18:11 18:11 18:11 RBC 5.22 H Eosinophils % 8.9 H D Mixed VBG HCO3 29.7 H Sodium 135 L Creatinine 1.2 H Random Glucose 434 H* AST 11 L Urine Glucose (UA) Acetone, Qual Negative L 12/11/17 18:24 RBC Eosinophils % Mixed VBG HCO3 Sodium Creatinine Random Glucose AST Urine Glucose (UA) 3+ H D Acetone, Qual Laboratory Results - last 24 hr 12/11/17 12/11/17 12/11/17 18:11 18:11 18:11 WBC 10.0 RBC 5.22 H Hgb 13.8 D Hct 42.8 D MCV 82.0 MCH 26.5 MCHC 32.3 RDW 14.4 Plt Count 367 MPV 9.8 Neutrophils % 51.4 D Lymphocytes % 30.7 D Monocytes % 8.4 Eosinophils % 8.9 H D Basophils % 0.6 VBG pH 7.42 POC VBG pCO2 46.9 POC VBG pO2 42.2 Mixed VBG HCO3 29.7 H Sodium 135 L Potassium 4.2 Chloride 98 Carbon Dioxide 29 Anion Gap 8 BUN 18 Creatinine 1.2 H Creat Clearance w eGFR 46.30 POC Glucometer Random Glucose 434 H* Calcium 9.7 Total Bilirubin 0.5 D AST 11 L ALT 29 Alkaline Phosphatase 86 Total Protein 7.8 Albumin 3.7 Urine Color Urine Appearance Urine pH Ur Specific [place] Urine Protein Urine Glucose (UA) Urine Ketones Urine Blood Urine Nitrite Urine Bilirubin Urine Urobilinogen Ur Leukocyte Esterase Acetone, Qual Negative L 12/11/17 12/11/17 12/11/17 18:24 20:24 23:48 WBC RBC Hgb Hct MCV MCH MCHC RDW Plt Count MPV Neutrophils % Lymphocytes % Monocytes % Eosinophils % Basophils % VBG pH POC VBG pCO2 POC VBG pO2 Mixed VBG HCO3 Sodium Potassium Chloride Carbon Dioxide Anion Gap BUN Creatinine Creat Clearance w eGFR POC Glucometer > 400 372 Random Glucose Calcium Total Bilirubin AST ALT Alkaline Phosphatase Total Protein Albumin Urine Color Straw Urine Appearance Clear Urine pH 7.0 D Ur Specific [place] 1.026 Urine Protein Negative Urine Glucose (UA) 3+ H D Urine Ketones Negative Urine Blood Negative Urine Nitrite Negative Urine Bilirubin Negative Urine Urobilinogen Negative Ur Leukocyte Esterase Negative Acetone, Qual plan: omni pod insulin doses with basal and bolus insulin doses patient capable of using the insulin pump bgm qid rheumatology consult orthopedic consult left knee swelling and pain
[2017-12-12] MEDS: INSULIN SLIDING SCALE (NOVOLOG) 1 VIAL SQ SCH ×3 (06:29→17:08)
[2017-12-12] MEDS: HEPARIN NA (PORCINE) 5,000 UNITS/ML 1ML VIAL SQ SCH ×2 (06:30→16:16)
[2017-12-12 09:13] LABS: BASO % 0.7 % (0-2.0); EOS % 9.2 % (0-4.5); MCH 26.5 pg (25.7-33.7); MCHC 31.8 g/dl (32.0-36.0); MEAN CELL VOLUME 83.3 fl (80-96); MEAN PLT VOLUME 10.7 fl (7.5-11.1); MONO % 8.2 % (3.8-10.2); NEUT % 45.9 % (42.8-82.8); PLATELET COUNT 318 K/MM3 (134-434); RBC 5.28 M/mm3 (3.60-5.2); RDW 14.4 % (11.6-15.6); WHITE BLOOD COUNT 10.6 K/mm3 (4.0-10.0)
[2017-12-12 09:27] LABS: ANION GAP 8 (8-16); BLOOD UREA NITROGEN 16 mg/dL (7-18); CALCIUM 8.7 mg/dL (8.5-10.1); CHLORIDE 104 mmol/L (98-107); CO2 27 mmol/L (21-32); CREATININE 0.7 mg/dL (0.55-1.02); GLUCOSE,RANDOM 268 mg/dL (74-106); POTASSIUM 4.4 mmol/L (3.5-5.1); SODIUM 139 mmol/L (136-145)
--- NOTE | 2017-12-12 09:34 | EKG ---
Test Reason : Blood Pressure : / mmHG Vent. Rate : 097 BPM Atrial Rate : 097 BPM P-R Int : 152 ms QRS Dur : 076 ms QT Int : 356 ms P-R-T Axes : 065 019 063 degrees QTc Int : 452 ms NORMAL SINUS RHYTHM NORMAL ECG WHEN COMPARED WITH ECG OF 23-APR-2017 13:47, NO SIGNIFICANT CHANGE WAS FOUND Confirmed by CODEY MACK MD ([id number]) on 12/12/2017 9:34:27 AM Referred By: Confirmed By:CODEY MACK MD
[2017-12-12] MEDS ORDERED: LOSARTAN POTASSIUM 50 MG TABLET (FP) PO SCH (10:00)
[2017-12-12] MEDS ORDERED: amLODIPine BESYLATE 5 MG TABLET (FP) PO SCH (10:00)
[2017-12-12] MEDS ORDERED: ASPIRIN 81 MG CHEWABLE TABLETS PO SCH (10:00)
[2017-12-12] MEDS ORDERED: PT OWN MED DRAWER 7, Y5N ONE (10:08)
[2017-12-12] MEDS ORDERED: ACETAMINOPHEN 325 MG TABLET (FP) PO PRN (12:14)
--- NOTE | 2017-12-12 12:24 | PN ---
Progress Note, Physician Chief Complaint: Uncontrolled Diabetes Mellitus History of Present Illness: NAD, complaining of left knee pain 2/2 to recent fall Recently Diagnosed with Sarcoidosis seen by Rheumatology BGM better controlled Seen by Endocrinology - Current Medication List Current Medications: Active Medications Acetaminophen (Tylenol -) 650 mg PO Q4H PRN PRN Reason: PAIN LEVEL 1-5 Amlodipine Besylate (Norvasc -) 5 mg PO DAILY COUNTS INCLUDE 234 BEDS AT THE [facility] Last Admin: 12/12/17 10:10 Dose: 5 mg Aspirin (Asa -) 81 mg PO DAILY COUNTS INCLUDE 234 BEDS AT THE [facility] Last Admin: 12/12/17 10:09 Dose: 81 mg Atorvastatin Calcium (Lipitor -) 10 mg PO HS COUNTS INCLUDE 234 BEDS AT THE [facility] Heparin Sodium (Porcine) (Heparin -) 5,000 unit SQ TID COUNTS INCLUDE 234 BEDS AT THE [facility] Last Admin: 12/12/17 06:30 Dose: 5,000 unit Insulin Aspart (Novolog Vial Sliding Scale -) 1 vial SQ ACHS COUNTS INCLUDE 234 BEDS AT THE [facility] PRN Reason: Protocol Last Admin: 12/12/17 11:30 Dose: 8 units Losartan Potassium (Cozaar -) 100 mg PO DAILY COUNTS INCLUDE 234 BEDS AT THE [facility] Last Admin: 12/12/17 10:09 Dose: 100 mg Metoprolol Succinate (Toprol Xl -) 50 mg PO DAILY COUNTS INCLUDE 234 BEDS AT THE [facility] Last Admin: 12/12/17 10:10 Dose: 50 mg - Objective Vital Signs: Vital Signs Temperature 98.5 F 12/12/17 05:30 Pulse Rate 86 12/12/17 05:30 Respiratory Rate 20 12/12/17 05:30 Blood Pressure 138/77 12/12/17 05:30 O2 Sat by Pulse Oximetry (%) 98 12/11/17 23:02 Constitutional: Yes: Well Nourished, No Distress, Calm, Obese Cardiovascular: Yes: Regular Rate and Rhythm Respiratory: Yes: Regular Gastrointestinal: Yes: Normal Bowel Sounds, Soft Musculoskeletal: Yes: WNL, Other (Left knee pain) Extremities: Yes: WNL Edema: No Peripheral Pulses WNL: Yes Neurological: Yes: Alert, Oriented Psychiatric: Yes: Alert, Oriented Labs: CBC, BMP 12/12/17 07:40 12/12/17 07:40 Problem List - Problems (1) HLD (hyperlipidemia) Assessment/Plan: -started on lipitor -goal LDL<70 mg/dl Code(s): E78.5 - HYPERLIPIDEMIA, UNSPECIFIED (2) Pain and swelling of left knee Assessment/Plan: -Left knee xray shows degenerative changes -pain management -Physical therapy Code(s): M25.562 - PAIN IN LEFT KNEE; M25.462 - EFFUSION, LEFT KNEE (3) Uncontrolled diabetes mellitus Assessment/Plan: -seen by endocrinology -on omnipod -diabetic diet -insulin coverage -BGM -RD consult Code(s): E11.65 - TYPE 2 DIABETES MELLITUS WITH HYPERGLYCEMIA Assessment/Plan see problem list
--- NOTE | 2017-12-12 16:03 | CONSULT ---
Consult Consult Specialty:: Rheumatology - History of Present Illness History of Present Illness: 57 y/o female with history of DM, HTN, HLD, and probable sarcoidosis, admitted with hyperglycemia and post-traumatic pain in the right knee. HPI. The patient has history of chronic pain in the right knee. An MRI of the right knee (06/21/17) was reported with radial tear of the medial meniscus, anterior cruciate tear and strain of the iliotibial band. On 11/29/17 the patient had a fall with trauma to both knees. She was seen in the ER 4 days later, and was prescribed a brace that did not fit well. The pain and swelling improved slowly. Since July 2017 she noticed subcutaneous nodules in hands. AN MRI of the left hand (09/30/17) was reported as normal. 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 She denies shortness of breath, chest pain, arthralgia in hands or other skin rash. - History Source History Provided By: Patient, Medical Record Limitations to Obtaining History: No Limitations - Past Medical History Cardio/Vascular: Yes: HTN, Hyperlipdemia Gastrointestinal: Yes: Other (Colon polyps: tubular adenoma left colon 10/13) Endocrine: Yes: Diabetes Mellitus (Type II, requires insulin) - Alcohol/Substance Use Hx Alcohol Use: Yes (Social) History of Substance Use: reports: None - Smoking History Smoking history: Never smoked Have you smoked in the past 12 months: No - Social History Usual Living Arrangement: Alone ADL: Independent Occupation: Unemployed History of Recent Travel: No Home Medications - Allergies Allergies/Adverse Reactions: Allergies Allergy/AdvReac Type Severity Reaction Status Date / Time No Known Allergies Allergy Verified 12/11/17 17:41 - Home Medications Home Medications: Ambulatory Orders Amlodipine Besylate [Norvasc -] 5 mg PO DAILY 04/23/17 Aspirin [ASA -] 81 mg PO DAILY 04/23/17 Metoprolol Succinate [Toprol Xl] 50 mg PO DAILY 04/23/17 Acetaminophen [Tylenol .Regular Strength -] 650 mg PO Q4H PRN tablet 12/12/17 Atorvastatin Ca [Lipitor] 10 mg PO HS #30 tablet 12/12/17 Ibuprofen 800 mg PO TID PRN #90 tablet 12/12/17 Losartan Potassium [Cozaar -] 100 mg PO DAILY tablet 12/12/17 metFORMIN HCL [Glucophage -] 500 mg PO BID #60 tab 12/12/17 Family Disease History - Family Disease History Family Disease History: Other: Father ( 54: in sleep), Mother ( 74 : in sleep, heart problems), Brother (3 brother, 1 40's: asthma, 1 35, asthma), Sister (5 sisters, 1 25 of "blood poisoning"), Son (1, healthy) Review of Systems - Review of Systems Constitutional: reports: No Symptoms Eyes: reports: No Symptoms HENT: reports: No Symptoms Neck: reports: No Symptoms Cardiovascular: reports: No Symptoms Respiratory: reports: No Symptoms Gastrointestinal: reports: No Symptoms Musculoskeletal: reports: Other (See HPI) Integumentary: reports: Other (See HPI) Physical Exam Vital Signs: Vital Signs Temperature 99.1 F 12/12/17 14:03 Pulse Rate 85 12/12/17 14:03 Respiratory Rate 20 12/12/17 09:00 Blood Pressure 121/71 12/12/17 14:03 O2 Sat by Pulse Oximetry (%) 96 12/12/17 09:00 Constitutional: Yes: Well Nourished Eyes: Yes: WNL HENT: Yes: WNL Neck: Yes: WNL Cardiovascular: Yes: WNL Respiratory: Yes: WNL Gastrointestinal: Yes: WNL Musculoskeletal: Yes: Other (Mild to moderate tenderness and small effusion in the right knee. No other active joints.) Integumentary: Yes: Other (Few small (0.5 cm) non tender, not fixed subcutaneous nodules in both hands.) Labs: CBC, BMP 12/12/17 07:40 12/12/17 07:40 Problem List - Problems (1) Sarcoidosis Assessment/Plan: Cutaneous sarcoidosis. No evidence of other organ involvement. Plan: I suggest not to treat sarcoidosis at this time and follow-up clinically. Code(s): D86.9 - SARCOIDOSIS, UNSPECIFIED (2) Pain and swelling of left knee Assessment/Plan: Tenderness and small effusion in the right knee related to meniscus tear and trauma after a fall. the patient is improving spontaneoulsy. i suggest to continue management with NSAID's and if there ramon further improvement she might kneed steroid injections and physical therapy, Avoid arthroscopic surgery. Code(s): M25.562 - PAIN IN LEFT KNEE; M25.462 - EFFUSION, LEFT KNEE
[2017-12-12 18:51] VITALS: BP 136/78; PULSE 78; TEMP 98.9
== END 2017-12-12 18:53 | disposition home or self-care (01) ==
LOC: JER 17:33 → JERBED 20:30 → UNDOADMOB 20:30 → INTOOBSV 20:30 → JERBED 23:42 → J6S 23:42 → JERBED 12-12 12:48 → J6S 12-12 12:48
PROVIDERS: ADMIT Internal Medicine; ATTEND Family Medicine
PROC: 3E033VG Introduction of Insulin into Peripheral Vein, Percutaneous Approach (ICD-10-PCS; principal; 2017-12-12)
PROC: 3E013VG Introduction of Insulin into Subcutaneous Tissue, Percutaneous Approach (ICD-10-PCS; 2017-12-12)
PROC: 3E0337Z Introduction of Electrolytic and Water Balance Substance into Peripheral Vein, Percutaneous Approach (ICD-10-PCS; 2017-12-12)
DX: E11.65 Type 2 diabetes mellitus with hyperglycemia (principal); Z79.4 Long term (current) use of insulin; Z79.82 Long term (current) use of aspirin; Z79.84 Long term (current) use of oral hypoglycemic drugs; I10 Essential (primary) hypertension; E78.5 Hyperlipidemia, unspecified; M25.562 Pain in left knee; M25.462 Effusion, left knee; D86.86 Sarcoid arthropathy; D86.9 Sarcoidosis, unspecified
CPT/HCPCS: 36415; 71046-TC-FY; 73562-TC-LT-FY; 80048; 80053; 81003; 82009; 82803; 82962; 83036; 85025; 93005; 93010; 96361; 96372; 96374; 97116-GP; 97161-GP; 99285-25; G0378; J1644; J7030